=== PATIENT | female | born 1950 | race Caucasian/White ===

== ENCOUNTER 2017-09-15 15:06 | Inpatient (IN) | payer MEDICARE, MEDICAID ==
[~2017-09-15] VITALS: Ht 157.5 cm; Wt 78.0 kg
[~2017-09-15 15:06] MED LIST: BUSP5TAB3 PO; CETI-102 PO; FLUO40CA PO; GABA-532 PO; LEVO50TA78 PO; LISI40TA4 PO; LORA1TAB PO; OMEP-50 PO; OXYC-145 PO; TRAZ-91 PO
[2017-09-15 16:27] LABS: BASOPHILS % (AUTO) 0.1 % (0-1); EOSINOPHILS % (AUTO) 0.2 % (0-6); HEMOGLOBIN 12.1 g/dl (12.0-16.0); LYMPHOCYTES # (AUTO) 0.8 X10'3 (1.1-4.8); LYMPHOCYTES % (AUTO) 5.6 % (21-51); MEAN CORPUSCULAR HEMOGLOBIN 32.6 PG (27.0-31.0); MEAN CORPUSCULAR HGB CONC 34.6 % (33.0-36.5); MEAN CORPUSCULAR VOLUME 94.3 FL (78-98); MEAN PLATELET VOLUME 8.5 FL (7.4-10.4); MONOCYTES # (AUTO) 0.4 X10'3 (0-0.9); MONOCYTES % (AUTO) 2.6 % (2-12); NEUTROPHILS # (AUTO) 12.5 X10'3 (1.8-7.7); NEUTROPHILS % (AUTO) 91.5 % (42-75); PLATELET COUNT 85 X10'3 (140-440); RED BLOOD COUNT 3.71 X10'6 (4.20-5.60); RED CELL DISTRIBUTION WIDTH 13.8 % (11.5-14.5); WHITE BLOOD COUNT 13.7 X10'3 (4.5-11.0)
[2017-09-15 16:52] LABS: ALANINE AMINOTRANSFERASE 38 U/L (12-78); ALBUMIN 3.5 G/DL (3.4-5.0); ALBUMIN/GLOBULIN RATIO 0.9 (1.1-1.5); ALKALINE PHOSPHATASE 58 IU/L (46-116); ANION GAP 8 (8-16); ASPARTATE AMINO TRANSFERASE 20 U/L (10-37); BILIRUBIN,TOTAL 0.4 MG/DL (0.1-1.0); BLOOD UREA NITROGEN 33 MG/DL (7-18); BUN/CREATININE RATIO 17.2 (6.6-38.0); CALCIUM 8.9 MG/DL (8.5-10.1); CHLORIDE 100 MMOL/L (99-107); CREATININE 1.92 MG/DL (0.40-0.90); GLUCOSE 132 MG/DL (70-104); POTASSIUM 4.7 MMOL/L (3.5-5.1); SODIUM 135 MMOL/L (135-145); TOTAL CARBON DIOXIDE 27.2 MMOL/L (24-32); TOTAL PROTEIN 7.3 G/DL (6.4-8.2); eGFR 26 ML/MIN
[2017-09-15 17:06] LABS: D-DIMER 4.46 MG/L FEU (0-0.50); PROTHROMBIN TIME 9.9 SECONDS (9.0-12.0)
[2017-09-15] MEDS ORDERED: HYDR-3686 PO (19:16)
[2017-09-15] MEDS ORDERED: CHLO25CA10 PO (19:16)
[2017-09-15] MEDS ORDERED: BENZ-49 PO (19:16)
[2017-09-15] MEDS ORDERED: SULF1TAB49 PO (19:16)
[2017-09-15] MEDS ORDERED: normal saline 1000ml 1,000 ML IV ONE ×2 (19:25)
[2017-09-15] MEDS: normal saline 1000ml 1,000 ML IV SCH (20:07)
[2017-09-15] MEDS ORDERED: ondansetron/PF 4mg/2ml inj IV PRN (20:10)
[2017-09-15] MEDS ORDERED: magnesium Cl slow-release 64mg tablet PO PRN (20:10)
[2017-09-15] MEDS ORDERED: acetaminophen 325mg tablet PO PRN (20:10)
[2017-09-15] MEDS ORDERED: magnesium 2GM in 50ml NS 50 ML IV PRN (20:10)
[2017-09-15] MEDS ORDERED: mag hydrox/Alum hydrox/simeth 30ml oral suspension PO PRN (20:10)
[2017-09-15] MEDS ORDERED: magnesium hydroxide 30ml (MOM) UD suspension PO PRN (20:10)
[2017-09-15] MEDS ORDERED: potassium Cl 40MEQ/NS 500ml 500 ML IV PRN ×2 (20:10)
[2017-09-15] MEDS ORDERED: ipratropium/albuterol 3ml nebule NEB PRN (20:10)
[2017-09-15] MEDS ORDERED: magnesium 4gm in 100ml NS 100 ML IV PRN (20:10)
[2017-09-15] MEDS ORDERED: potassium Cl 20 mEq SR tablet PO PRN ×2 (20:10)
[2017-09-15] MEDS ORDERED: haloperidol 5mg tablet PO PRN (20:30)
[2017-09-15] MEDS ORDERED: LORazepam 2 mg/ml vial IV PRN (20:30)
[2017-09-15] MEDS ORDERED: haloperidol lactate 5mg/ml inj IM PRN (20:30)
[2017-09-15] MEDS ORDERED: thiamine inj. 100 MG in normal saline 100ml IV soln 100 ML IV ONE (20:30)
[2017-09-15] MEDS ORDERED: benzonatate 100mg capsule PO PRN (20:35)
[2017-09-15 22:00] VITALS: BP 102/60
[2017-09-15] MEDS: traZODone 50mg tablet PO SCH (22:13)
[2017-09-15] MEDS: gabapentin 300mg capsule PO SCH (22:13)
[2017-09-15] MEDS ORDERED: normal saline 100ml IV soln 100 ML IV ONE (23:40)
[2017-09-15] MEDS ORDERED: thiamine 100mg/ml 2ml inj. IV ONE (23:40)
[2017-09-16] VITALS: BP 102/58
[2017-09-16] MEDS: normal saline 1000ml 1,000 ML IV SCH ×2 (06:07→12:09)
[2017-09-16 06:11] LABS: ALANINE AMINOTRANSFERASE 28 U/L (12-78); ALBUMIN 2.7 G/DL (3.4-5.0); ALBUMIN/GLOBULIN RATIO 0.8 (1.1-1.5); ALKALINE PHOSPHATASE 48 IU/L (46-116); AMYLASE 20 U/L (25-115); ANION GAP 9 (8-16); ASPARTATE AMINO TRANSFERASE 16 U/L (10-37); BILIRUBIN,TOTAL 0.6 MG/DL (0.1-1.0); BLOOD UREA NITROGEN 31 MG/DL (7-18); BUN/CREATININE RATIO 19.1 (6.6-38.0); CALCIUM 8.1 MG/DL (8.5-10.1); CHLORIDE 107 MMOL/L (99-107); CHOL/HDL RATIO 4.8 (0.00-4.99); CHOLESTEROL 235 MG/DL (0-200); CREATININE 1.62 MG/DL (0.40-0.90); GLUCOSE 149 MG/DL (70-104); HDL CHOLESTEROL 49 MG/DL (35-60); LDL CHOLESTEROL 155 MG/DL (50-100); LIPASE < 50 U/L (73-393); PHOSPHORUS 3.3 MG/DL (2.3-4.5); POTASSIUM 4.8 MMOL/L (3.5-5.1); SODIUM 140 MMOL/L (135-145); TOTAL CARBON DIOXIDE 24.2 MMOL/L (24-32); TRIGLYCERIDES 151 MG/DL (20-135); eGFR 32 ML/MIN
[2017-09-16 06:48] LABS: BASOPHILS % (AUTO) 0.1 % (0-1); EOSINOPHILS # (AUTO) 0.1 X10'3 (0-0.9); EOSINOPHILS % (AUTO) 1.7 % (0-6); HEMATOCRIT 29.9 % (35.0-45.0); HEMOGLOBIN 10.3 g/dl (12.0-16.0); LYMPHOCYTES # (AUTO) 0.7 X10'3 (1.1-4.8); LYMPHOCYTES % (AUTO) 7.3 % (21-51); MEAN CORPUSCULAR HEMOGLOBIN 32.9 PG (27.0-31.0); MEAN CORPUSCULAR HGB CONC 34.3 % (33.0-36.5); MEAN CORPUSCULAR VOLUME 95.9 FL (78-98); MEAN PLATELET VOLUME 8.9 FL (7.4-10.4); MONOCYTES # (AUTO) 0.4 X10'3 (0-0.9); NEUTROPHILS # (AUTO) 7.6 X10'3 (1.8-7.7); NEUTROPHILS % (AUTO) 85.9 % (42-75); PLATELET COUNT 67 X10'3 (140-440); RED BLOOD COUNT 3.12 X10'6 (4.20-5.60); RED CELL DISTRIBUTION WIDTH 13.6 % (11.5-14.5); WHITE BLOOD COUNT 8.9 X10'3 (4.5-11.0)
[2017-09-16 07:00] VITALS: BP 90/44
[2017-09-16] MEDS: FLUoxetine 20mg capsule PO SCH (07:30)
[2017-09-16] MEDS: pantoprazole 40mg Tablet.DR PO SCH (07:30)
[2017-09-16] MEDS: busPIRone 5mg tablet PO SCH (07:30)
[2017-09-16] MEDS: gabapentin 300mg capsule PO SCH ×3 (07:30→20:07)
[2017-09-16] MEDS: cetirizine 10mg tablet PO SCH (07:31)
[2017-09-16] MEDS: lisinopril 10 MG tablet PO SCH (07:33)
[2017-09-16] MEDS: levoTHYROXINE 25mcg tablet PO SCH (07:34)
[2017-09-16] MEDS: K and/or MAG REPLACEMENT MC SCH (07:35)
[2017-09-16 08:00] VITALS: BP_SYST 103; BP_SYST 113; BP_SYST 121; BP_DIAS 56; BP_DIAS 58
[2017-09-16 08:00] LABS: PROTHROMBIN TIME 10.1 SECONDS (9.0-12.0)
[2017-09-16] MEDS ORDERED: folic acid inj. 2 MG, thiamine inj. 100 MG, MVI, adult No.4 with vit. K 10 ML in dextro... IV SCH ×4 (08:00)
[2017-09-16] MEDS ORDERED: LATA2.5D2 OP (09:39)
[2017-09-16] MEDS: acetaminophen 325mg tablet PO PRN ×2 (10:04→22:57)
[2017-09-16] MEDS: thiamine 100mg tablet PO SCH (10:05)
[2017-09-16] MEDS: multivitamins, therapeutics tablet PO SCH (10:05)
[2017-09-16] MEDS: folic acid 1mg tablet PO SCH (10:05)
[2017-09-16 11:00] VITALS: BP 113/56
[2017-09-16 18:00] VITALS: BP 147/69
[2017-09-16] MEDS: chlordiazePOXIDE 5mg capsule PO PRN (18:54)
[2017-09-16] MEDS: traZODone 50mg tablet PO SCH (20:07)
[2017-09-16] MEDS: latanoprost 0.005% 2.5ml ophthalmic drops EACHEYE SCH (20:09)
[2017-09-17] VITALS: BP 124/51
[2017-09-17] MEDS: normal saline 1000ml 1,000 ML IV SCH ×3 (02:07→15:04)
[2017-09-17] MEDS: chlordiazePOXIDE 5mg capsule PO PRN (05:16)
[2017-09-17 06:05] LABS: BASOPHILS % (AUTO) 0.1 % (0-1); EOSINOPHILS # (AUTO) 0.2 X10'3 (0-0.9); EOSINOPHILS % (AUTO) 2.4 % (0-6); HEMATOCRIT 31.4 % (35.0-45.0); HEMOGLOBIN 10.9 g/dl (12.0-16.0); LYMPHOCYTES # (AUTO) 0.9 X10'3 (1.1-4.8); MEAN CORPUSCULAR HEMOGLOBIN 32.6 PG (27.0-31.0); MEAN CORPUSCULAR HGB CONC 34.5 % (33.0-36.5); MEAN CORPUSCULAR VOLUME 94.5 FL (78-98); MEAN PLATELET VOLUME 8.9 FL (7.4-10.4); MONOCYTES # (AUTO) 0.6 X10'3 (0-0.9); MONOCYTES % (AUTO) 8.5 % (2-12); NEUTROPHILS # (AUTO) 5.6 X10'3 (1.8-7.7); PLATELET COUNT 72 X10'3 (140-440); RED BLOOD COUNT 3.33 X10'6 (4.20-5.60); RED CELL DISTRIBUTION WIDTH 13.7 % (11.5-14.5); WHITE BLOOD COUNT 7.3 X10'3 (4.5-11.0)
[2017-09-17 06:10] LABS: PROTHROMBIN TIME 10.6 SECONDS (9.0-12.0)
[2017-09-17 06:48] LABS: ALANINE AMINOTRANSFERASE 30 U/L (12-78); ALBUMIN 2.8 G/DL (3.4-5.0); ALBUMIN/GLOBULIN RATIO 0.7 (1.1-1.5); ALKALINE PHOSPHATASE 54 IU/L (46-116); AMYLASE 21 U/L (25-115); ANION GAP 12 (8-16); ASPARTATE AMINO TRANSFERASE 11 U/L (10-37); BILIRUBIN,TOTAL 0.6 MG/DL (0.1-1.0); BLOOD UREA NITROGEN 13 MG/DL (7-18); BUN/CREATININE RATIO 13.3 (6.6-38.0); CALCIUM 9.1 MG/DL (8.5-10.1); CHLORIDE 110 MMOL/L (99-107); CREATININE 0.98 MG/DL (0.40-0.90); GLUCOSE 131 MG/DL (70-104); LIPASE < 50 U/L (73-393); PHOSPHORUS 3.7 MG/DL (2.3-4.5); POTASSIUM 4.1 MMOL/L (3.5-5.1); SODIUM 145 MMOL/L (135-145); TOTAL PROTEIN 6.6 G/DL (6.4-8.2); eGFR 56 ML/MIN
[2017-09-17] MEDS: levoTHYROXINE 25mcg tablet PO SCH (07:19)
[2017-09-17] MEDS: pantoprazole 40mg Tablet.DR PO SCH (07:20)
[2017-09-17] MEDS: folic acid 1mg tablet PO SCH (07:21)
[2017-09-17] MEDS: busPIRone 5mg tablet PO SCH (07:21)
[2017-09-17] MEDS: FLUoxetine 20mg capsule PO SCH (07:22)
[2017-09-17] MEDS: thiamine 100mg tablet PO SCH (07:22)
[2017-09-17] MEDS: multivitamins, therapeutics tablet PO SCH (07:22)
[2017-09-17] MEDS: lisinopril 10 MG tablet PO SCH (07:22)
[2017-09-17] MEDS: cetirizine 10mg tablet PO SCH (07:22)
[2017-09-17] MEDS: gabapentin 300mg capsule PO SCH ×3 (07:22→20:40)
[2017-09-17] MEDS: acetaminophen 325mg tablet PO PRN ×2 (07:25→18:21)
[2017-09-17] MEDS: K and/or MAG REPLACEMENT MC SCH (08:00)
[2017-09-17 08:42] VITALS: BP 140/85
[2017-09-17 11:34] VITALS: BP 103/64
[2017-09-17 11:35] VITALS: BP 123/56
[2017-09-17 18:00] VITALS: BP 139/78
[2017-09-17 20:00] VITALS: BP_SYST 139; BP_SYST 142; BP_DIAS 70; BP_DIAS 73; BP_DIAS 78
[2017-09-17] MEDS: traZODone 50mg tablet PO SCH (20:40)
[2017-09-17] MEDS: latanoprost 0.005% 2.5ml ophthalmic drops EACHEYE SCH (20:40)
[2017-09-18] VITALS: BP 123/66
[2017-09-18] MEDS: acetaminophen 325mg tablet PO PRN (05:18)
[2017-09-18 06:17] LABS: BASOPHILS % (AUTO) 0.2 % (0-1); EOSINOPHILS # (AUTO) 0.2 X10'3 (0-0.9); EOSINOPHILS % (AUTO) 3.3 % (0-6); HEMATOCRIT 29.2 % (35.0-45.0); HEMOGLOBIN 10.2 g/dl (12.0-16.0); LYMPHOCYTES # (AUTO) 0.8 X10'3 (1.1-4.8); LYMPHOCYTES % (AUTO) 15.1 % (21-51); MEAN CORPUSCULAR HEMOGLOBIN 33.3 PG (27.0-31.0); MEAN PLATELET VOLUME 10.1 FL (7.4-10.4); MONOCYTES # (AUTO) 0.6 X10'3 (0-0.9); MONOCYTES % (AUTO) 11.3 % (2-12); NEUTROPHILS # (AUTO) 3.5 X10'3 (1.8-7.7); NEUTROPHILS % (AUTO) 70.1 % (42-75); PLATELET COUNT 75 X10'3 (140-440); RED BLOOD COUNT 3.07 X10'6 (4.20-5.60); RED CELL DISTRIBUTION WIDTH 12.5 % (11.5-14.5); WHITE BLOOD COUNT 5.1 X10'3 (4.5-11.0)
[2017-09-18 06:20] LABS: ALANINE AMINOTRANSFERASE 26 U/L (12-78); ALBUMIN 2.6 G/DL (3.4-5.0); ALBUMIN/GLOBULIN RATIO 0.7 (1.1-1.5); ALKALINE PHOSPHATASE 48 IU/L (46-116); AMYLASE 20 U/L (25-115); ANION GAP 10 (8-16); ASPARTATE AMINO TRANSFERASE 12 U/L (10-37); BILIRUBIN,TOTAL 0.4 MG/DL (0.1-1.0); BLOOD UREA NITROGEN 9 MG/DL (7-18); BUN/CREATININE RATIO 12.2 (6.6-38.0); CALCIUM 8.7 MG/DL (8.5-10.1); CHLORIDE 111 MMOL/L (99-107); CREATININE 0.74 MG/DL (0.40-0.90); GLUCOSE 117 MG/DL (70-104); LIPASE < 50 U/L (73-393); MAGNESIUM 1.7 MG/DL (1.5-2.4); PHOSPHORUS 4.2 MG/DL (2.3-4.5); SODIUM 145 MMOL/L (135-145); TOTAL CARBON DIOXIDE 23.8 MMOL/L (24-32); TOTAL PROTEIN 6.3 G/DL (6.4-8.2); eGFR 78 ML/MIN
[2017-09-18] MEDS: levoTHYROXINE 25mcg tablet PO SCH (07:17)
[2017-09-18] MEDS: pantoprazole 40mg Tablet.DR PO SCH (07:17)
[2017-09-18] MEDS: FLUoxetine 20mg capsule PO SCH (07:17)
[2017-09-18] MEDS: folic acid 1mg tablet PO SCH (07:17)
[2017-09-18] MEDS: gabapentin 300mg capsule PO SCH ×2 (07:17→13:22)
[2017-09-18] MEDS: lisinopril 10 MG tablet PO SCH (07:17)
[2017-09-18] MEDS: thiamine 100mg tablet PO SCH (07:18)
[2017-09-18] MEDS: busPIRone 5mg tablet PO SCH (07:18)
[2017-09-18] MEDS: cetirizine 10mg tablet PO SCH (07:18)
[2017-09-18] MEDS: multivitamins, therapeutics tablet PO SCH (07:18)
[2017-09-18] MEDS: K and/or MAG REPLACEMENT MC SCH (07:22)
[2017-09-18] MEDS: normal saline 1000ml 1,000 ML IV SCH (08:07)
[2017-09-18 08:30] VITALS: BP_SYST 123; BP_SYST 133; BP_SYST 145; BP_DIAS 53; BP_DIAS 76; BP_DIAS 83
[2017-09-18 08:43] VITALS: BP 123/53
[2017-09-18] MEDS ORDERED: MULT-1179 PO (11:22)
[2017-09-18] MEDS: chlordiazePOXIDE 5mg capsule PO PRN (13:22)
[2017-09-18 14:00] VITALS: BP 135/69
== END 2017-09-18 14:45 | disposition home health service (06) | DRG 682 ==
LOC: ER 15:06 → ED HOLD 20:07 → SUR 3N 22:36
PROVIDERS: ADMIT Family Medicine; ATTEND Internal Medicine
DX: N17.9 Acute kidney failure, unspecified (principal); J96.00 Acute respiratory failure, unspecified whether with hypoxia or hypercapnia; D69.59 Other secondary thrombocytopenia; E86.0 Dehydration; E11.9 Type 2 diabetes mellitus without complications; D64.9 Anemia, unspecified; F10.239 Alcohol dependence with withdrawal, unspecified; F32.9 Major depressive disorder, single episode, unspecified; M19.90 Unspecified osteoarthritis, unspecified site; I10 Essential (primary) hypertension; J20.9 Acute bronchitis, unspecified; R79.1 Abnormal coagulation profile; Z98.891 History of uterine scar from previous surgery; Z88.0 Allergy status to penicillin; Z91.011 Allergy to milk products; Z79.899 Other long term (current) drug therapy; Z87.891 Personal history of nicotine dependence; Z82.3 Family history of stroke; Z82.49 Family history of ischemic heart disease and other diseases of the circulatory system; Z82.5 Family history of asthma and other chronic lower respiratory diseases; Z83.3 Family history of diabetes mellitus
CPT/HCPCS: 36415; 71045; 78582; 80053; 80061; 82150; 82948; 83605; 83690; 83735; 83880; 84100; 84484; 85025; 85379; 85610; 87040; 87070; 87502; 87503; 93005; 93306; 94760; 97110; 97116; 97161; 99285; A6258; A9539; A9540; J3411; J3490; J7030; J7060

== ENCOUNTER 2017-10-06 16:46 | Emergency (ER) | payer MEDICARE, MEDICAID ==
[~2017-10-06] VITALS: Ht 5200 cm; Wt 74.1 kg
[~2017-10-06 16:46] MED LIST changes: +BENZ-49 PO; +CHLO25CA10 PO; +HYDR-3686 PO; +LATA2.5D2 OP; +MULT-1179 PO; -OXYC-145 PO
[2017-10-06] MEDS ORDERED: normal saline 1000ML IV soln IVB ONE (16:55)
[2017-10-06] MEDS ORDERED: thiamine inj. 100 MG in normal saline 100ml IV soln 99 ML IV ONE (16:55)
[2017-10-06] MEDS ORDERED: magnesium 2GM in 50ml NS 50 ML IV ONE (16:55)
[2017-10-06 17:33] LABS: BASOPHILS % (AUTO) 0.3 % (0-1); EOSINOPHILS # (AUTO) 0.2 X10'3 (0-0.9); EOSINOPHILS % (AUTO) 5.7 % (0-6); HEMATOCRIT 36.8 % (35.0-45.0); HEMOGLOBIN 12.8 g/dl (12.0-16.0); LYMPHOCYTES # (AUTO) 1.6 X10'3 (1.1-4.8); LYMPHOCYTES % (AUTO) 45.5 % (21-51); MEAN CORPUSCULAR HEMOGLOBIN 32.2 PG (27.0-31.0); MEAN CORPUSCULAR HGB CONC 34.8 % (33.0-36.5); MEAN CORPUSCULAR VOLUME 92.7 FL (78-98); MEAN PLATELET VOLUME 8.2 FL (7.4-10.4); MONOCYTES # (AUTO) 0.4 X10'3 (0-0.9); MONOCYTES % (AUTO) 10.4 % (2-12); NEUTROPHILS # (AUTO) 1.3 X10'3 (1.8-7.7); NEUTROPHILS % (AUTO) 38.1 % (42-75); PLATELET COUNT 128 X10'3 (140-440); RED BLOOD COUNT 3.97 X10'6 (4.20-5.60); RED CELL DISTRIBUTION WIDTH 13.8 % (11.5-14.5); WHITE BLOOD COUNT 3.5 X10'3 (4.5-11.0)
[2017-10-06 17:50] LABS: CLARITY,URINE CLEAR (Clear); COLOR,URINE YELLOW (Yellow); GLUCOSE, URINE NEGATIVE (Neg); KETONES,URINE NEGATIVE (Neg); LEUKOCYTE ESTERASE ,URINE TRACE (Neg); NITRITES, URINE NEGATIVE (Neg); OCCULT BLOOD,URINE TRACE-INTACT (Neg); PROTEIN,URINE NEGATIVE (Neg); UROBILINOGEN,URINE 0.2 E.U/dL (0.2-1.0)
[2017-10-06 17:51] LABS: UA COLLECTION TYPE CLN CATCH MIDSTREAM
[2017-10-06 17:56] LABS: BACTERIA,URINE NONE SEEN /HPF (Neg); MUCUS STRANDS NONE SEEN /LPF (Neg); RBC,URINE NONE SEEN /HPF (0-2); SQUAMOUS EPITHELIAL CELL,UR FEW /LPF (FEW); WBC,URINE 0-4 /HPF (0-4)
[2017-10-06 17:58] LABS: ALANINE AMINOTRANSFERASE 31 U/L (12-78); ALBUMIN 3.3 G/DL (3.4-5.0); ALBUMIN/GLOBULIN RATIO 0.9 (1.1-1.5); ALKALINE PHOSPHATASE 81 IU/L (46-116); ANION GAP 9 (8-16); ASPARTATE AMINO TRANSFERASE 34 U/L (10-37); BILIRUBIN,TOTAL 0.3 MG/DL (0.1-1.0); BLOOD UREA NITROGEN 10 MG/DL (7-18); BUN/CREATININE RATIO 11.6 (6.6-38.0); CALCIUM 8.7 MG/DL (8.5-10.1); CHLORIDE 104 MMOL/L (99-107); CREATININE 0.86 MG/DL (0.40-0.90); GLUCOSE 118 MG/DL (70-104); LIPASE < 50 U/L (73-393); MAGNESIUM 2.2 MG/DL (1.5-2.4); POTASSIUM 4.2 MMOL/L (3.5-5.1); SODIUM 142 MMOL/L (135-145); TOTAL CARBON DIOXIDE 28.7 MMOL/L (24-32); TOTAL PROTEIN 6.9 G/DL (6.4-8.2); eGFR 65 ML/MIN
[2017-10-06 18:10] LABS: URINE AMPHETAMINE SCREEN NEGATIVE (Neg); URINE BARBITUATE SCREEN NEGATIVE (Neg); URINE BENZODIAZEPINES SCREEN POSITIVE (Neg); URINE CANNABINOID SCREEN POSITIVE (Neg); URINE COCAINE SCREEN NEGATIVE (Neg); URINE METHADONE SCREEN NEGATIVE (Neg); URINE OPIATE SCREEN NEGATIVE (Neg); URINE PHENCYCLIDINE SCREEN NEGATIVE (Neg)
[2017-10-06 18:35] VITALS: BP 134/73
[2017-10-06] MEDS ORDERED: phenobarbital inj 260 MG in normal saline 100ml IV soln 99 ML IV STA (18:49)
== END 2017-10-06 21:08 | disposition home or self-care (01) ==
LOC: ER 16:47
DX: R45.851 Suicidal ideations (principal); F10.129 Alcohol abuse with intoxication, unspecified; F12.10 Cannabis abuse, uncomplicated; I10 Essential (primary) hypertension; E11.9 Type 2 diabetes mellitus without complications; F32.9 Major depressive disorder, single episode, unspecified; Z88.0 Allergy status to penicillin; Z98.890 Other specified postprocedural states
CPT/HCPCS: 36415; 80053; 80305; 80320; 81001; 82948; 83690; 83735; 84443; 85025; 87088; 93005; 96365; 96366; 96368; 99285; J2560; J3411; J3475; J7030

== ENCOUNTER 2019-01-16 12:22 | Inpatient (IN) | payer MEDICARE, MEDICAID ==
[~2019-01-16] VITALS: Ht 157.5 cm; Wt 72.7 kg
[~2019-01-16 12:22] MED LIST changes: -BENZ-49 PO; -CHLO25CA10 PO; +LATA2.5D2 EACHEYE; -LATA2.5D2 OP; -LORA1TAB PO; -MULT-1179 PO
[2019-01-16 13:09] LABS: BASOPHILS % (AUTO) 0.3 % (0-1); EOSINOPHILS # (AUTO) 0.1 X10'3 (0-0.9); EOSINOPHILS % (AUTO) 0.9 % (0-6); HEMATOCRIT 42.6 % (35.0-45.0); HEMOGLOBIN 14.8 g/dl (12.0-16.0); LYMPHOCYTES # (AUTO) 1.6 X10'3 (1.1-4.8); LYMPHOCYTES % (AUTO) 12.2 % (21-51); MEAN CORPUSCULAR HEMOGLOBIN 31.3 PG (27.0-31.0); MEAN CORPUSCULAR HGB CONC 34.7 g/dL (33.0-36.5); MEAN CORPUSCULAR VOLUME 90.1 FL (78-98); MEAN PLATELET VOLUME 8.1 FL (7.4-10.4); MONOCYTES # (AUTO) 0.6 X10'3 (0-0.9); MONOCYTES % (AUTO) 4.8 % (2-12); NEUTROPHILS # (AUTO) 10.6 X10'3 (1.8-7.7); NEUTROPHILS % (AUTO) 81.8 % (42-75); PLATELET COUNT 230 X10'3 (140-440); RED BLOOD COUNT 4.73 X10'6 (4.20-5.60); WHITE BLOOD COUNT 12.9 X10'3 (4.5-11.0)
[2019-01-16 13:10] LABS: PARTIAL THROMBOPLASTIN TIME 28 SECONDS (22-32)
[2019-01-16 13:16] LABS: ALANINE AMINOTRANSFERASE 32 U/L (12-78); ALBUMIN 4.1 G/DL (3.4-5.0); ALKALINE PHOSPHATASE 114 IU/L (46-116); ANION GAP 15 (8-16); ASPARTATE AMINO TRANSFERASE 19 U/L (10-37); BILIRUBIN,TOTAL 0.8 MG/DL (0.1-1.0); BLOOD UREA NITROGEN 33 MG/DL (7-18); BUN/CREATININE RATIO 14.3 (6.6-38.0); CALCIUM 9.6 MG/DL (8.5-10.1); CHLORIDE 95 MMOL/L (99-107); GLUCOSE 206 MG/DL (70-104); POTASSIUM 4.4 MMOL/L (3.5-5.1); SODIUM 134 MMOL/L (135-145); TOTAL CARBON DIOXIDE 24.2 MMOL/L (24-32); TOTAL PROTEIN 8.2 G/DL (6.4-8.2); eGFR 21 ML/MIN
[2019-01-16] MEDS ORDERED: ondansetron/PF 4mg/2ml inj IV ONE (13:45)
[2019-01-16] MEDS ORDERED: aspirin 325mg tablet PO ONE (13:45)
[2019-01-16] MEDS ORDERED: enoxaparin 100mg/ml syringe SUBCUT ONE (13:45)
[2019-01-16] MEDS ORDERED: normal saline 1000ML IV soln IVB ONE (13:45)
[2019-01-16 13:52] LABS: ETHANOL < 0.010 GM/DL (0.0-0.010)
[2019-01-16 13:55] LABS: LIPASE 138 U/L (73-393)
[2019-01-16] MEDS ORDERED: CYCL10TA10 PO (14:20)
[2019-01-16] MEDS ORDERED: IBUP-1986 PO (14:20)
[2019-01-16] MEDS ORDERED: ALBU18HF2 INH (14:20)
[2019-01-16] MEDS ORDERED: THIA100T66 PO (14:20)
[2019-01-16] MEDS ORDERED: ATOR20TA66 PO (14:20)
[2019-01-16] MEDS ORDERED: LORA0.5T PO (14:20)
--- NOTE | 2019-01-16 14:21 | NUR ---
dr. radford at bedside.
[2019-01-16] MEDS ORDERED: HYDROcodone/acetaminophen 5mg/325mg tablet PO PRN (14:30)
[2019-01-16] MEDS ORDERED: dextrose ORAL solution 15 GM/59 ML bottle PO PRN (14:30)
[2019-01-16] MEDS ORDERED: haloperidol 5mg tablet PO PRN (14:30)
[2019-01-16] MEDS ORDERED: dextrose 50%-water 50ml dispensing syringe IV PRN ×2 (14:30)
[2019-01-16] MEDS ORDERED: acetaminophen 325mg tablet PO PRN ×2 (14:30)
[2019-01-16] MEDS ORDERED: glucagon, human recombinant 1mg kit SUBCUT PRN (14:30)
[2019-01-16] MEDS ORDERED: magnesium 2GM in 50ml NS 50 ML IV PRN (14:30)
[2019-01-16] MEDS ORDERED: thiamine inj. 100 MG in normal saline 100ml IV soln 100 ML IV ONE (14:30)
[2019-01-16] MEDS ORDERED: potassium CL 10mEq/100ml bag 100 ML IV PRN ×2 (14:30)
[2019-01-16] MEDS ORDERED: ipratropium/albuterol 3ml nebule NEB PRN (14:30)
[2019-01-16] MEDS ORDERED: potassium Cl 20 mEq SR tablet PO PRN ×2 (14:30)
[2019-01-16] MEDS ORDERED: haloperidol lactate 5mg/ml inj IM PRN (14:30)
[2019-01-16] MEDS ORDERED: MESSAGE TO PHARMACY PO ONE (14:30)
[2019-01-16] MEDS ORDERED: magnesium Cl slow-release 64mg tablet PO PRN (14:30)
[2019-01-16] MEDS ORDERED: magnesium 4gm in 100ml NS 100 ML IV PRN (14:30)
[2019-01-16] MEDS ORDERED: ondansetron/PF 4mg/2ml inj IV PRN (14:30)
[2019-01-16] MEDS ORDERED: docusate sod 100mg capsule PO PRN (14:30)
[2019-01-16] MEDS ORDERED: mag hydrox/Alum hydrox/simeth 30ml oral suspension PO PRN (14:30)
[2019-01-16] MEDS ORDERED: albuterol 2.5 MG/3 ML nebule NEB PRN (14:55)
[2019-01-16 15:00] VITALS: BP 128/62
[2019-01-16 15:45] LABS: HEMOGLOBIN A1C 6.1 % (4.5-6.2)
--- NOTE | 2019-01-16 17:25 | NUR ---
PAGER ID: [phone] MESSAGE: [id number] Alexia Greene Latic acid came back 2.2 ALLA Uribe Ext [phone]
--- NOTE | 2019-01-16 17:37 | NUR ---
Orientee documentation: I have reviewed and agree with all interventions, assessments performed and documented by ALLA Wilson.
--- NOTE | 2019-01-16 17:39 | NUR ---
Orientee Medication Administration: For this medication-pass time frame, all medication were reviewed, dispensed, administered and documented per hospital policy by ALLA Wilson.
--- NOTE | 2019-01-16 18:36 | NUR ---
Patient in room PCU 3026. I have received report from Rony GOLD and had the opportunity to ask questions and assume patient care.
[2019-01-16 19:00] VITALS: BP 123/68
[2019-01-16] MEDS: LORazepam 2 mg/ml vial IV PRN (21:23)
[2019-01-16] MEDS: traZODone 50mg tablet PO SCH (21:23)
[2019-01-16] MEDS: gabapentin 300mg capsule PO SCH (21:24)
[2019-01-16] MEDS: HYDROcodone/acetaminophen 10/325mg tab PO PRN (21:25)
[2019-01-16] MEDS: latanoprost 0.005% 2.5ml ophthalmic drops EACHEYE SCH (21:28)
[2019-01-16] MEDS: insulin glargine (Lantus) pen - multi-dose SQ SCH (21:38)
[2019-01-16 22:00] VITALS: BP 90/55
[2019-01-17] VITALS (7 sets, daily range): BP systolic 79–119; BP diastolic 53–92
[2019-01-17 02:36] LABS: ALANINE AMINOTRANSFERASE 26 U/L (12-78); ALBUMIN 3.2 G/DL (3.4-5.0); ALBUMIN/GLOBULIN RATIO 0.9 (1.1-1.5); ALKALINE PHOSPHATASE 94 IU/L (46-116); ANION GAP 10 (8-16); ASPARTATE AMINO TRANSFERASE 16 U/L (10-37); BILIRUBIN,TOTAL 0.5 MG/DL (0.1-1.0); BLOOD UREA NITROGEN 40 MG/DL (7-18); BUN/CREATININE RATIO 20.7 (6.6-38.0); CALCIUM 8.3 MG/DL (8.5-10.1); CHLORIDE 101 MMOL/L (99-107); CREATININE 1.93 MG/DL (0.40-0.90); GLUCOSE 187 MG/DL (70-104); POTASSIUM 4.1 MMOL/L (3.5-5.1); SODIUM 135 MMOL/L (135-145); TOTAL CARBON DIOXIDE 24.5 MMOL/L (24-32); TOTAL PROTEIN 6.6 G/DL (6.4-8.2); eGFR 26 ML/MIN
[2019-01-17 02:37] LABS: BASOPHILS % (AUTO) 0.4 % (0-1); EOSINOPHILS # (AUTO) 0.3 X10'3 (0-0.9); EOSINOPHILS % (AUTO) 3.3 % (0-6); HEMATOCRIT 35.8 % (35.0-45.0); HEMOGLOBIN 12.1 g/dl (12.0-16.0); LYMPHOCYTES # (AUTO) 1.9 X10'3 (1.1-4.8); LYMPHOCYTES % (AUTO) 21.5 % (21-51); MEAN CORPUSCULAR HEMOGLOBIN 31.2 PG (27.0-31.0); MEAN CORPUSCULAR HGB CONC 33.9 g/dL (33.0-36.5); MEAN CORPUSCULAR VOLUME 92.3 FL (78-98); MEAN PLATELET VOLUME 8.3 FL (7.4-10.4); MONOCYTES # (AUTO) 0.6 X10'3 (0-0.9); MONOCYTES % (AUTO) 6.9 % (2-12); NEUTROPHILS % (AUTO) 67.9 % (42-75); PLATELET COUNT 130 X10'3 (140-440); RED BLOOD COUNT 3.88 X10'6 (4.20-5.60); RED CELL DISTRIBUTION WIDTH 13.9 % (11.5-14.5); WHITE BLOOD COUNT 8.9 X10'3 (4.5-11.0)
[2019-01-17 02:41] LABS: AMYLASE 20 U/L (25-115); CHOL/HDL RATIO 5.3 (0.00-4.99); CHOLESTEROL 165 MG/DL (0-200); HDL CHOLESTEROL 31 MG/DL (35-60); LDL CHOLESTEROL 84 MG/DL (50-100); LIPASE 68 U/L (73-393); MAGNESIUM 1.9 MG/DL (1.5-2.4); PHOSPHORUS 4.5 MG/DL (2.3-4.5); TRIGLYCERIDES 440 MG/DL (20-135)
--- NOTE | 2019-01-17 06:54 | NUR ---
Patient in room PCU 3026. I have received report from Chrystal and had the opportunity to ask questions and assume patient care.
[2019-01-17] MEDS: FLUoxetine 20mg capsule PO SCH (07:33)
[2019-01-17] MEDS: multivitamins, therapeutics tablet PO SCH (07:35)
[2019-01-17] MEDS: atorvastatin 20mg tablet PO SCH (07:35)
[2019-01-17] MEDS: levoTHYROXINE 25mcg tablet PO SCH (07:35)
[2019-01-17] MEDS: busPIRone 5mg tablet PO SCH (07:35)
[2019-01-17] MEDS: cetirizine 10mg tablet PO SCH (07:35)
[2019-01-17] MEDS: gabapentin 300mg capsule PO SCH ×3 (07:36→22:35)
[2019-01-17] MEDS: folic acid 1mg tablet PO SCH (07:36)
[2019-01-17] MEDS: K and/or MAG REPLACEMENT MC SCH (07:43)
[2019-01-17] MEDS ORDERED: enoxaparin 80mg/0.8ml syringe SUBCUT SCH (08:00)
[2019-01-17] MEDS ORDERED: lisinopril 20mg tablet PO SCH (08:00)
[2019-01-17] MEDS: thiamine 100mg tablet PO SCH (08:09)
--- NOTE | 2019-01-17 08:24 | NUR ---
Problems reprioritized. Patient report given, questions answered & plan of care reviewed with Rony GOLD.
[2019-01-17] MEDS: insulin Lispro (HumaLOG) vial - multi-dose SQ SCH ×2 (08:54→19:36)
[2019-01-17] MEDS: HYDROcodone/acetaminophen 10/325mg tab PO PRN ×3 (09:04→19:30)
[2019-01-17] MEDS: normal saline 1000ml 1,000 ML IV SCH ×2 (10:00→17:29)
--- NOTE | 2019-01-17 10:01 | NUR ---
DM consult: Patient's A1c is 6.1, per EMR hx overall stable as last documented A1c was 6.0 11/12/17; No DM education warranted at this time. Will continue to follow. Addendum: 01/17/19 at [address] Amended: Links added.
[2019-01-17] MEDS: dextrose ORAL solution 15 GM/59 ML bottle PO PRN (12:09)
--- NOTE | 2019-01-17 18:32 | NUR ---
Problems reprioritized. Patient report given, questions answered & plan of care reviewed with ALLA Jarrell.
--- NOTE | 2019-01-17 19:20 | NUR ---
Patient in room PCU 3026. I have received report from Rony GOLD and had the opportunity to ask questions and assume patient care.
[2019-01-17] MEDS: carVEDilol 3.125mg tablet PO SCH (19:28)
[2019-01-17] MEDS: latanoprost 0.005% 2.5ml ophthalmic drops EACHEYE SCH (22:35)
[2019-01-17] MEDS: traZODone 50mg tablet PO SCH (22:35)
[2019-01-17] MEDS: LORazepam 2 mg/ml vial IV PRN (22:36)
[2019-01-17] MEDS: insulin glargine (Lantus) pen - multi-dose SQ SCH (22:38)
[2019-01-18] VITALS (8 sets, daily range): BP systolic 89–137; BP diastolic 50–72
[2019-01-18] MEDS: normal saline 1000ml 1,000 ML IV SCH ×3 (02:17→21:12)
[2019-01-18] MEDS: HYDROcodone/acetaminophen 10/325mg tab PO PRN ×3 (02:18→19:55)
--- NOTE | 2019-01-18 06:00 | NUR ---
Problems reprioritized. Patient report given, questions answered & plan of care reviewed with Funmi GOLD.
[2019-01-18 06:06] LABS: ALANINE AMINOTRANSFERASE 20 U/L (12-78); ALBUMIN 2.7 G/DL (3.4-5.0); ALBUMIN/GLOBULIN RATIO 0.9 (1.1-1.5); ALKALINE PHOSPHATASE 72 IU/L (46-116); AMYLASE 18 U/L (25-115); ANION GAP 6 (8-16); ASPARTATE AMINO TRANSFERASE 11 U/L (10-37); BASOPHILS % (AUTO) 0.3 % (0-1); BILIRUBIN,TOTAL 0.3 MG/DL (0.1-1.0); BLOOD UREA NITROGEN 33 MG/DL (7-18); BUN/CREATININE RATIO 32.7 (6.6-38.0); CALCIUM 7.8 MG/DL (8.5-10.1); CHLORIDE 107 MMOL/L (99-107); CREATININE 1.01 MG/DL (0.40-0.90); EOSINOPHILS # (AUTO) 0.2 X10'3 (0-0.9); EOSINOPHILS % (AUTO) 4.4 % (0-6); GLUCOSE 160 MG/DL (70-104); HEMATOCRIT 29.6 % (35.0-45.0); HEMOGLOBIN 10.1 g/dl (12.0-16.0); LIPASE < 50 U/L (73-393); LYMPHOCYTES # (AUTO) 1.3 X10'3 (1.1-4.8); LYMPHOCYTES % (AUTO) 26.9 % (21-51); MAGNESIUM 1.7 MG/DL (1.5-2.4); MEAN CORPUSCULAR HEMOGLOBIN 31.6 PG (27.0-31.0); MEAN CORPUSCULAR HGB CONC 34.3 g/dL (33.0-36.5); MEAN PLATELET VOLUME 8.3 FL (7.4-10.4); MONOCYTES # (AUTO) 0.3 X10'3 (0-0.9); MONOCYTES % (AUTO) 5.8 % (2-12); NEUTROPHILS % (AUTO) 62.6 % (42-75); PHOSPHORUS 3.2 MG/DL (2.3-4.5); PLATELET COUNT 98 X10'3 (140-440); POTASSIUM 4.5 MMOL/L (3.5-5.1); RED BLOOD COUNT 3.22 X10'6 (4.20-5.60); RED CELL DISTRIBUTION WIDTH 13.6 % (11.5-14.5); SODIUM 138 MMOL/L (135-145); TOTAL CARBON DIOXIDE 24.6 MMOL/L (24-32); TOTAL PROTEIN 5.7 G/DL (6.4-8.2); WHITE BLOOD COUNT 4.7 X10'3 (4.5-11.0); eGFR 54 ML/MIN
--- NOTE | 2019-01-18 06:42 | NUR ---
Patient in room PCU 3028O. I have received report from Chrystal GOLD and had the opportunity to ask questions and assume patient care.
[2019-01-18] MEDS: K and/or MAG REPLACEMENT MC SCH (08:00)
[2019-01-18] MEDS: enoxaparin 40mg/0.4ml syringe SUBCUT SCH (08:00)
[2019-01-18] MEDS: carVEDilol 3.125mg tablet PO SCH ×2 (08:27→19:54)
[2019-01-18] MEDS: folic acid 1mg tablet PO SCH (08:28)
[2019-01-18] MEDS: multivitamins, therapeutics tablet PO SCH (08:28)
[2019-01-18] MEDS: gabapentin 300mg capsule PO SCH ×3 (08:28→21:12)
[2019-01-18] MEDS: atorvastatin 20mg tablet PO SCH (08:28)
[2019-01-18] MEDS: busPIRone 5mg tablet PO SCH (08:28)
[2019-01-18] MEDS: levoTHYROXINE 25mcg tablet PO SCH (08:28)
[2019-01-18] MEDS: cetirizine 10mg tablet PO SCH (08:28)
[2019-01-18] MEDS: FLUoxetine 20mg capsule PO SCH (08:28)
[2019-01-18] MEDS: thiamine 100mg tablet PO SCH (08:28)
--- NOTE | 2019-01-18 08:35 | NUR ---
Dr Bowen called this morning to check in on Paged Jessi PAGER ID: [phone] MESSAGE: Funmi [id number]. Re Braxton Greene 8452N. Due to our phone call this morning, just wanted to let you know that patient is feeling slightly shaky at the moment. Thank you
[2019-01-18] MEDS: insulin Lispro (HumaLOG) vial - multi-dose SQ SCH (09:13)
[2019-01-18] MEDS: dextrose ORAL solution 15 GM/59 ML bottle PO PRN (12:21)
[2019-01-18] MEDS ORDERED: LORazepam 1 MG tablet PO PRN (14:30)
[2019-01-18] MEDS ORDERED: LORazepam 2 mg/ml vial IV PRN (14:30)
[2019-01-18] MEDS: calcium carbonate 500mg chew tablet PO SCH (17:17)
--- NOTE | 2019-01-18 18:22 | NUR ---
Problems reprioritized. Patient report given, questions answered & plan of care reviewed with Jairo GOLD.
--- NOTE | 2019-01-18 18:27 | NUR ---
Patient in room PCU 3022d. I have received report from ALLA Choudhary and had the opportunity to ask questions and assume patient care. Patient awake for bedside report and stable at this time. 60 mL/hr infusing per provider order. Will continue to monitor closely.
[2019-01-18] MEDS ORDERED: nortriptyline 10mg capsule PO SCH (21:00)
[2019-01-18] MEDS: traZODone 50mg tablet PO SCH (21:13)
[2019-01-18] MEDS: latanoprost 0.005% 2.5ml ophthalmic drops EACHEYE SCH (21:13)
[2019-01-18] MEDS: insulin glargine (Lantus) pen - multi-dose SQ SCH (21:37)
--- NOTE | 2019-01-19 02:00 | NUR ---
Patient was observed stumbling around room at this time. Patient stated she thought she was in a sailboat and an RN walking by was the captain. Patient was reoriented and assisted back to bed. Several minutes later, she was, again, observed by staff attempting to get out of bed and demonstrated an unsteady gait. Patient was escorted back to bed where she became tearful and stated she normally doesn't "do things like this." The 22 G that was placed in her left hand was dislodged by abrupt patient activity. New 22G PIV initiated. Will continue to monitor closely.
[2019-01-19 03:00] VITALS: BP 131/69
[2019-01-19 06:00] VITALS: BP 143/69
--- NOTE | 2019-01-19 06:20 | NUR ---
Patient in room PCU 3029U. I have received report from Jairo GOLD and had the opportunity to ask questions and assume patient care.
--- NOTE | 2019-01-19 06:20 | NUR ---
Problems reprioritized. Patient report given, questions answered & plan of care reviewed with ALLA Choudhary.
--- NOTE | 2019-01-19 06:30 | NUR ---
Patient in room PCU 3026. I have received report from Jairo GOLD and had the opportunity to ask questions and assume patient care.
[2019-01-19 07:00] LABS: BASOPHILS % (AUTO) 0.6 % (0-1); EOSINOPHILS # (AUTO) 0.2 X10'3 (0-0.9); EOSINOPHILS % (AUTO) 4.7 % (0-6); HEMATOCRIT 29.4 % (35.0-45.0); HEMOGLOBIN 10.1 g/dl (12.0-16.0); LYMPHOCYTES # (AUTO) 1.1 X10'3 (1.1-4.8); LYMPHOCYTES % (AUTO) 27.5 % (21-51); MEAN CORPUSCULAR HEMOGLOBIN 31.5 PG (27.0-31.0); MEAN CORPUSCULAR HGB CONC 34.2 g/dL (33.0-36.5); MEAN CORPUSCULAR VOLUME 92.2 FL (78-98); MEAN PLATELET VOLUME 8.8 FL (7.4-10.4); MONOCYTES # (AUTO) 0.3 X10'3 (0-0.9); MONOCYTES % (AUTO) 6.6 % (2-12); NEUTROPHILS # (AUTO) 2.5 X10'3 (1.8-7.7); NEUTROPHILS % (AUTO) 60.6 % (42-75); PLATELET COUNT 77 X10'3 (140-440); RED BLOOD COUNT 3.19 X10'6 (4.20-5.60); RED CELL DISTRIBUTION WIDTH 13.5 % (11.5-14.5); WHITE BLOOD COUNT 4.1 X10'3 (4.5-11.0)
[2019-01-19 07:20] LABS: ALANINE AMINOTRANSFERASE 20 U/L (12-78); ALBUMIN 2.7 G/DL (3.4-5.0); ALBUMIN/GLOBULIN RATIO 0.9 (1.1-1.5); ALKALINE PHOSPHATASE 64 IU/L (46-116); AMYLASE 19 U/L (25-115); ANION GAP 9 (8-16); ASPARTATE AMINO TRANSFERASE 10 U/L (10-37); BILIRUBIN,TOTAL 0.3 MG/DL (0.1-1.0); BLOOD UREA NITROGEN 20 MG/DL (7-18); BUN/CREATININE RATIO 25.3 (6.6-38.0); CALCIUM 8.1 MG/DL (8.5-10.1); CHLORIDE 109 MMOL/L (99-107); CREATININE 0.79 MG/DL (0.40-0.90); GLUCOSE 163 MG/DL (70-104); LIPASE 87 U/L (73-393); MAGNESIUM 1.6 MG/DL (1.5-2.4); PHOSPHORUS 2.9 MG/DL (2.3-4.5); POTASSIUM 4.2 MMOL/L (3.5-5.1); SODIUM 142 MMOL/L (135-145); TOTAL CARBON DIOXIDE 24.3 MMOL/L (24-32); TOTAL PROTEIN 5.6 G/DL (6.4-8.2); eGFR 72 ML/MIN
[2019-01-19 08:00] VITALS: BP_SYST 140; BP_SYST 141; BP_SYST 150; BP_DIAS 49; BP_DIAS 67; BP_DIAS 69
[2019-01-19] MEDS: K and/or MAG REPLACEMENT MC SCH (08:00)
[2019-01-19] MEDS: enoxaparin 40mg/0.4ml syringe SUBCUT SCH (08:00)
[2019-01-19] MEDS: calcium carbonate 500mg chew tablet PO SCH ×2 (08:28→13:08)
[2019-01-19] MEDS: FLUoxetine 20mg capsule PO SCH (08:28)
[2019-01-19] MEDS: multivitamins, therapeutics tablet PO SCH (08:29)
[2019-01-19] MEDS: levoTHYROXINE 25mcg tablet PO SCH (08:29)
[2019-01-19] MEDS: folic acid 1mg tablet PO SCH (08:29)
[2019-01-19] MEDS: gabapentin 300mg capsule PO SCH ×2 (08:29→13:07)
[2019-01-19] MEDS: thiamine 100mg tablet PO SCH (08:29)
[2019-01-19] MEDS: atorvastatin 20mg tablet PO SCH (08:29)
[2019-01-19] MEDS: carVEDilol 3.125mg tablet PO SCH (08:30)
[2019-01-19] MEDS: cetirizine 10mg tablet PO SCH (08:31)
[2019-01-19] MEDS: busPIRone 5mg tablet PO SCH (08:31)
[2019-01-19] MEDS: HYDROcodone/acetaminophen 10/325mg tab PO PRN ×2 (08:41→13:12)
[2019-01-19 11:00] VITALS: BP 141/67
[2019-01-19] MEDS ORDERED: GLIP5TAB13 PO (11:47)
[2019-01-19] MEDS ORDERED: COR3.125T PO (11:47)
--- NOTE | 2019-01-19 13:30 | NUR ---
Called in new prescriptions to [facility] at [address] [place] [id number]. Call received by Katie from [facility].
--- NOTE | 2019-01-19 14:00 | NUR ---
Stable for discharge per MD orders. Discharge instructions reviewed and given to patient and all questions answered. New prescriptions called into pharmacy of patient's choice. Pt. will schedule own follow up appointment. PIV discontinued; cannula intact. Telemetry monitoring discontinued. All belongings sent with patient. Transferred to private vehicle via wheelchair for transport home, accompanied by friends. Addendum: 01/19/19 at 1612 by Funmi Freitas RN Patient provided with [facility], and this RN sent [facility]. Patient seeks outpatient care at [facility] and they said they will fax over for a request for medical records and then they will call patient to confirm appt (they would not allow us to make followup appt first) *OR the patient can call or go into walk in for appt after discharge. Patient was also provided with hardcopy prescription for strips and lancets to monitor blood glucose.
[2019-01-20] MEDS ORDERED: LORazepam 1 MG tablet PO PRN (14:30)
[2019-01-20] MEDS ORDERED: LORazepam 2 mg/ml vial IV PRN (14:30)
== END 2019-01-19 14:05 | disposition home or self-care (01) | DRG 280 ==
LOC: ER 12:23 → PCU 3S 16:24
PROVIDERS: ADMIT Family Medicine; ATTEND Family Medicine
DX: I21.A1 Myocardial infarction type 2 (principal); N17.0 Acute kidney failure with tubular necrosis; I42.1 Obstructive hypertrophic cardiomyopathy; F10.231 Alcohol dependence with withdrawal delirium; E11.65 Type 2 diabetes mellitus with hyperglycemia; D72.823 Leukemoid reaction; E03.9 Hypothyroidism, unspecified; E78.00 Pure hypercholesterolemia, unspecified; F41.9 Anxiety disorder, unspecified; H40.9 Unspecified glaucoma; I11.0 Hypertensive heart disease with heart failure; M54.42 Lumbago with sciatica, left side; I08.1 Rheumatic disorders of both mitral and tricuspid valves; E86.0 Dehydration; M19.90 Unspecified osteoarthritis, unspecified site; F32.9 Major depressive disorder, single episode, unspecified; Z98.891 History of uterine scar from previous surgery; Z82.49 Family history of ischemic heart disease and other diseases of the circulatory system; Z79.890 Hormone replacement therapy; Z79.899 Other long term (current) drug therapy; Z88.0 Allergy status to penicillin; Z91.011 Allergy to milk products; Z83.3 Family history of diabetes mellitus; Z82.5 Family history of asthma and other chronic lower respiratory diseases; Z79.84 Long term (current) use of oral hypoglycemic drugs; Z82.3 Family history of stroke
CPT/HCPCS: 36415; 71045; 80053; 80061; 80320; 82150; 82948; 83036; 83605; 83690; 83735; 84100; 84145; 84443; 84484; 85025; 85610; 85730; 87040; 87081; 93005; 93306; 93880; 94760; 96365; 96372; 96375; 97116; 97161; 97530; 99285; G0378; J1650; J1815; J2060; J2405; J3411; J7030

== ENCOUNTER 2019-02-15 14:39 | Observation (INO) | payer MEDICARE, MEDICAID ==
[~2019-02-15] VITALS: Ht 157.5 cm; Wt 72.7 kg
[~2019-02-15 14:39] MED LIST changes: +ALBU18HF2 INH; +ATOR20TA66 PO; +COR3.125T PO; +CYCL10TA10 PO; +GLIP5TAB13 PO; -HYDR-3686 PO; -LISI40TA4 PO; +LORA0.5T PO; +THIA100T66 PO
[2019-02-15 15:06] LABS: BASOPHILS % (AUTO) 0.2 % (0-1); EOSINOPHILS # (AUTO) 0.1 X10'3 (0-0.9); EOSINOPHILS % (AUTO) 0.9 % (0-6); HEMATOCRIT 40.1 % (35.0-45.0); HEMOGLOBIN 13.5 g/dl (12.0-16.0); LYMPHOCYTES # (AUTO) 1.1 X10'3 (1.1-4.8); LYMPHOCYTES % (AUTO) 8.4 % (21-51); MEAN CORPUSCULAR HEMOGLOBIN 30.9 PG (27.0-31.0); MEAN CORPUSCULAR HGB CONC 33.7 g/dL (33.0-36.5); MEAN CORPUSCULAR VOLUME 91.5 FL (78-98); MEAN PLATELET VOLUME 7.8 FL (7.4-10.4); MONOCYTES # (AUTO) 0.6 X10'3 (0-0.9); MONOCYTES % (AUTO) 4.8 % (2-12); NEUTROPHILS # (AUTO) 11.4 X10'3 (1.8-7.7); NEUTROPHILS % (AUTO) 85.7 % (42-75); PLATELET COUNT 157 X10'3 (140-440); RED BLOOD COUNT 4.39 X10'6 (4.20-5.60); RED CELL DISTRIBUTION WIDTH 13.2 % (11.5-14.5); WHITE BLOOD COUNT 13.3 X10'3 (4.5-11.0)
[2019-02-15 15:16] LABS: PARTIAL THROMBOPLASTIN TIME 23 SECONDS (22-32)
[2019-02-15 15:18] LABS: ALANINE AMINOTRANSFERASE 29 U/L (12-78); ALBUMIN 3.6 G/DL (3.4-5.0); ALBUMIN/GLOBULIN RATIO 1.1 (1.1-1.5); ALKALINE PHOSPHATASE 72 IU/L (46-116); ANION GAP 12 (8-16); ASPARTATE AMINO TRANSFERASE 18 U/L (10-37); BILIRUBIN,TOTAL 0.5 MG/DL (0.1-1.0); BLOOD UREA NITROGEN 31 MG/DL (7-18); BUN/CREATININE RATIO 21.8 (6.6-38.0); CALCIUM 8.5 MG/DL (8.5-10.1); CHLORIDE 100 MMOL/L (99-107); CREATININE 1.42 MG/DL (0.40-0.90); GLUCOSE 205 MG/DL (70-104); POTASSIUM 3.8 MMOL/L (3.5-5.1); SODIUM 135 MMOL/L (135-145); eGFR 37 ML/MIN
[2019-02-15] MEDS ORDERED: normal saline 1000ML IV soln IVB ONE (15:20)
[2019-02-15] MEDS ORDERED: mag hydrox/Alum hydrox/simeth 30ml oral suspension PO PRN (16:05)
[2019-02-15] MEDS ORDERED: ondansetron/PF 4mg/2ml inj IV PRN (16:05)
[2019-02-15] MEDS ORDERED: acetaminophen 325mg tablet PO PRN (16:05)
[2019-02-15] MEDS ORDERED: magnesium hydroxide 30ml (MOM) UD suspension PO PRN (16:05)
[2019-02-15] MEDS ORDERED: ATOR40TA72 PO (16:08)
[2019-02-15] MEDS: LORazepam 0.5 MG tablet PO PRN (16:17)
--- NOTE | 2019-02-15 16:17 | NUR ---
Attempted to obtain UA sample at this time per order, patient unable to urinate at this time, returned safely to bed.
--- NOTE | 2019-02-15 16:40 | NUR ---
Patient in room PCU 3014. I have received report from Jose Elias GOLD and had the opportunity to ask questions and assume patient care.
[2019-02-15 16:45] VITALS: BP 139/65
--- NOTE | 2019-02-15 16:45 | NUR ---
Received pt from ED stable. Patient denies chest pain. Tele box applied. Patient oriented to room and unit. Bed low/locked, side rails up x2, call light in reach.
[2019-02-15] MEDS ORDERED: BUSP15TA7 PO (16:46)
--- NOTE | 2019-02-15 18:00 | NUR ---
Problems reprioritized. Patient report given, questions answered & plan of care reviewed with Carol GOLD.
--- NOTE | 2019-02-15 18:46 | NUR ---
Patient in room PCU 3014. I have received report from ALLA Irene and had the opportunity to ask questions and assume patient care.
--- NOTE | 2019-02-15 18:47 | NUR ---
Sent to [facility] MESSAGE: ROOM 3014B, Alexia Greene: This patient has DM would you like to put her on the diabetic protocol?
[2019-02-15 19:00] VITALS: BP 122/36
[2019-02-15 19:07] LABS: CLARITY,URINE CLEAR (Clear); COLOR,URINE YELLOW (Yellow); GLUCOSE, URINE NEGATIVE (Neg); KETONES,URINE NEGATIVE (Neg); LEUKOCYTE ESTERASE ,URINE MODERATE (Neg); NITRITES, URINE NEGATIVE (Neg); OCCULT BLOOD,URINE TRACE-INTACT (Neg); PH,URINE 5.5 (4.8-8.0); PROTEIN,URINE NEGATIVE (Neg); UROBILINOGEN,URINE 0.2 E.U/dL (0.2-1.0)
[2019-02-15 19:11] LABS: UA COLLECTION TYPE NON-SPECIFIED
[2019-02-15 19:12] LABS: BACTERIA,URINE FEW /HPF (Neg); RBC,URINE 0-2 /HPF (0-2); RENAL CELLS, URINE FEW /HPF; SQUAMOUS EPITHELIAL CELL,UR FEW /LPF (FEW); WBC,URINE 0-4 /HPF (0-4)
[2019-02-15] MEDS ORDERED: albuterol 2.5 MG/3 ML nebule NEB PRN (19:30)
[2019-02-15] MEDS ORDERED: LORazepam 0.5 MG tablet PO PRN (19:30)
[2019-02-15] MEDS ORDERED: glucagon, human recombinant 1mg kit SUBCUT PRN (19:55)
[2019-02-15] MEDS ORDERED: insulin Lispro (HumaLOG) vial - multi-dose SQ SCH (19:55)
[2019-02-15] MEDS ORDERED: dextrose 50%-water 50ml dispensing syringe IV PRN ×2 (19:55)
[2019-02-15] MEDS ORDERED: MESSAGE TO PHARMACY PO ONE (19:55)
[2019-02-15] MEDS ORDERED: dextrose ORAL solution 15 GM/59 ML bottle PO PRN ×2 (19:55)
[2019-02-15] MEDS: gabapentin 300mg capsule PO SCH (20:06)
[2019-02-15] MEDS: busPIRone 15mg tablet PO SCH (20:06)
[2019-02-15] MEDS: thiamine 100mg tablet PO SCH (20:06)
[2019-02-15] MEDS: carVEDilol 3.125mg tablet PO SCH (20:07)
[2019-02-15] MEDS: normal saline 1000ml 1,000 ML IV SCH (20:11)
[2019-02-15] MEDS: heparin, porcine 5000 units/ml vial SQ SCH (20:12)
[2019-02-15 20:26] VITALS: BP 109/57
[2019-02-15] MEDS ORDERED: insulin glargine (Lantus) pen - multi-dose SQ SCH (21:00)
[2019-02-15] MEDS ORDERED: latanoprost 0.005% 2.5ml ophthalmic drops EACHEYE SCH (21:00)
[2019-02-15] MEDS ORDERED: traZODone 50mg tablet PO SCH (21:00)
[2019-02-15 21:26] LABS: HEMOGLOBIN A1C 6.3 % (4.5-6.2)
[2019-02-15 22:00] VITALS: BP 91/49
[2019-02-16 00:03] VITALS: BP 99/57
--- NOTE | 2019-02-16 00:16 | NUR ---
Patient is non-compliant with her call light, though I have educated her various times about her risk of having a syncopal episode. Educated her about her low BP, and repeated previous syncopal episodes and reminded her bout her high fall risk. She states that she understands and will now use her call light.
[2019-02-16 02:00] VITALS: BP 116/48
[2019-02-16] MEDS: normal saline 1000ml 1,000 ML IV SCH (02:01)
[2019-02-16 02:41] LABS: ALBUMIN 3.1 G/DL (3.4-5.0); ANION GAP 9 (8-16); BLOOD UREA NITROGEN 31 MG/DL (7-18); BUN/CREATININE RATIO 26.1 (6.6-38.0); CALCIUM 7.8 MG/DL (8.5-10.1); CHLORIDE 106 MMOL/L (99-107); CREATININE 1.19 MG/DL (0.40-0.90); GLUCOSE 97 MG/DL (70-104); POTASSIUM 3.5 MMOL/L (3.5-5.1); SODIUM 139 MMOL/L (135-145); TOTAL CARBON DIOXIDE 24.2 MMOL/L (24-32); eGFR 45 ML/MIN
[2019-02-16 02:47] LABS: BASOPHILS % (AUTO) 0.2 % (0-1); EOSINOPHILS # (AUTO) 0.1 X10'3 (0-0.9); EOSINOPHILS % (AUTO) 1.4 % (0-6); HEMATOCRIT 35.4 % (35.0-45.0); HEMOGLOBIN 12.1 g/dl (12.0-16.0); LYMPHOCYTES # (AUTO) 1.2 X10'3 (1.1-4.8); LYMPHOCYTES % (AUTO) 14.3 % (21-51); MEAN CORPUSCULAR HEMOGLOBIN 31.5 PG (27.0-31.0); MEAN CORPUSCULAR HGB CONC 34.2 g/dL (33.0-36.5); MEAN CORPUSCULAR VOLUME 92.1 FL (78-98); MEAN PLATELET VOLUME 8.1 FL (7.4-10.4); MONOCYTES # (AUTO) 0.5 X10'3 (0-0.9); MONOCYTES % (AUTO) 5.7 % (2-12); NEUTROPHILS # (AUTO) 6.7 X10'3 (1.8-7.7); NEUTROPHILS % (AUTO) 78.4 % (42-75); PLATELET COUNT 112 X10'3 (140-440); RED BLOOD COUNT 3.85 X10'6 (4.20-5.60); RED CELL DISTRIBUTION WIDTH 12.8 % (11.5-14.5); WHITE BLOOD COUNT 8.6 X10'3 (4.5-11.0)
--- NOTE | 2019-02-16 06:33 | NUR ---
Problems reprioritized. Patient report given, questions answered & plan of care reviewed with ALLA Franco.
--- NOTE | 2019-02-16 06:43 | NUR ---
Patient in room PCU 3014. I have received report from Carol GOLD and had the opportunity to ask questions and assume patient care.
[2019-02-16 07:00] VITALS: BP 134/65
[2019-02-16] MEDS ORDERED: levoTHYROXINE 25mcg tablet PO SCH (07:30)
[2019-02-16] MEDS: busPIRone 15mg tablet PO SCH (07:42)
[2019-02-16] MEDS: gabapentin 300mg capsule PO SCH (07:42)
[2019-02-16] MEDS: carVEDilol 3.125mg tablet PO SCH (07:42)
[2019-02-16] MEDS: thiamine 100mg tablet PO SCH (07:43)
[2019-02-16] MEDS: heparin, porcine 5000 units/ml vial SQ SCH (07:43)
[2019-02-16] MEDS: LORazepam 0.5 MG tablet PO PRN (07:43)
[2019-02-16] MEDS ORDERED: FLUoxetine 20mg capsule PO SCH (08:00)
[2019-02-16] MEDS ORDERED: atorvastatin 20mg tablet PO SCH (08:00)
[2019-02-16] MEDS ORDERED: cetirizine 10mg tablet PO SCH (08:00)
[2019-02-16 09:44] VITALS: BP_SYST 103; BP_SYST 131; BP_SYST 99; BP_DIAS 67; BP_DIAS 75; BP_DIAS 78
[2019-02-16] MEDS ORDERED: ATI0.5T PO (10:17)
--- NOTE | 2019-02-16 10:34 | NUR ---
PAGER ID: [phone] MESSAGE: Boy [id number]. Need a hard copy Rx for the discharge Ativan please. Joan [phone]
[2019-02-16 11:00] VITALS: BP 148/75
--- NOTE | 2019-02-16 12:18 | NUR ---
Malnutrition consult: Pt admit w/ chest pain r/t GERD per MD note. Hx T2DM, HTN. Pt has no weakness, no significant edema/wounds, and PO 100% heart healthy meals w/ BMI 29 meeting needs. Does not meet malnutrition criteria at this time. Addendum: 02/16/19 at [address] Amended: Links added.
--- NOTE | 2019-02-16 13:30 | NUR ---
Patient was discharged at 1330 home. All belongings were sent with patient and discharge packet and instructions were reviewed before signing and being sent with patient. PIV was removed with cannula intact, telemetry monitoring removed, prescription hard copy sent with patient. Patient was wheeled down by staff and left via private vehicle with friend.
== END 2019-02-16 13:30 | disposition home or self-care (01) ==
LOC: ER 14:40 → PCU 3S 16:48
PROVIDERS: ADMIT Family Medicine; ATTEND Family Medicine
DX: R07.89 Other chest pain (principal); F41.9 Anxiety disorder, unspecified; N17.9 Acute kidney failure, unspecified; E86.0 Dehydration; R19.7 Diarrhea, unspecified; R55 Syncope and collapse; F32.9 Major depressive disorder, single episode, unspecified; I11.0 Hypertensive heart disease with heart failure; J44.9 Chronic obstructive pulmonary disease, unspecified; I50.9 Heart failure, unspecified; E11.9 Type 2 diabetes mellitus without complications; E03.9 Hypothyroidism, unspecified; E78.00 Pure hypercholesterolemia, unspecified; Z86.73 Personal history of transient ischemic attack (TIA), and cerebral infarction without residual deficits; Z95.1 Presence of aortocoronary bypass graft
CPT/HCPCS: 36415; 71045; 80048; 80053; 81001; 82948; 83036; 84484; 85025; 85610; 85730; 87088; 93005; 94760; 96360; 96361; 96372; 99284; G0378; J1644; J1815; J7030; 87081

== ENCOUNTER 2019-06-05 14:02 | Inpatient (IN) | payer MEDICARE, MEDICAID ==
[~2019-06-05] VITALS: Ht 157.5 cm; Wt 68.2 kg
[~2019-06-05 14:02] MED LIST changes: +ATI0.5T PO; -ATOR20TA66 PO; +ATOR40TA72 PO; +BUSP15TA7 PO; -BUSP5TAB3 PO; -CYCL10TA10 PO; -LORA0.5T PO; -OMEP-50 PO
[2019-06-05 14:40] LABS: BASOPHILS # (AUTO) 0.1 X10'3 (0-0.2); BASOPHILS % (AUTO) 0.8 % (0-1); EOSINOPHILS % (AUTO) 0.4 % (0-6); HEMATOCRIT 43.5 % (35.0-45.0); HEMOGLOBIN 15.1 g/dl (12.0-16.0); LYMPHOCYTES # (AUTO) 1.5 X10'3 (1.1-4.8); LYMPHOCYTES % (AUTO) 20.2 % (21-51); MEAN CORPUSCULAR HEMOGLOBIN 32.2 PG (27.0-31.0); MEAN CORPUSCULAR HGB CONC 34.7 g/dL (33.0-36.5); MEAN PLATELET VOLUME 7.6 FL (7.4-10.4); MONOCYTES # (AUTO) 0.9 X10'3 (0-0.9); MONOCYTES % (AUTO) 11.6 % (2-12); NEUTROPHILS # (AUTO) 5.1 X10'3 (1.8-7.7); PLATELET COUNT 189 X10'3 (140-440); RED BLOOD COUNT 4.68 X10'6 (4.20-5.60); RED CELL DISTRIBUTION WIDTH 13.7 % (11.5-14.5); WHITE BLOOD COUNT 7.6 X10'3 (4.5-11.0)
[2019-06-05 14:53] LABS: ALANINE AMINOTRANSFERASE 48 U/L (12-78); ALBUMIN 4.4 G/DL (3.4-5.0); ALBUMIN/GLOBULIN RATIO 1.1 (1.1-1.5); ALKALINE PHOSPHATASE 99 IU/L (46-116); ANION GAP 16 (8-16); ASPARTATE AMINO TRANSFERASE 51 U/L (10-37); BILIRUBIN,TOTAL 0.9 MG/DL (0.1-1.0); BLOOD UREA NITROGEN 21 MG/DL (7-18); BUN/CREATININE RATIO 23.3 (6.6-38.0); CALCIUM 9.6 MG/DL (8.5-10.1); CHLORIDE 96 MMOL/L (99-107); GLUCOSE 167 MG/DL (70-104); POTASSIUM 4.4 MMOL/L (3.5-5.1); SODIUM 136 MMOL/L (135-145); TOTAL CARBON DIOXIDE 23.9 MMOL/L (24-32); TOTAL PROTEIN 8.3 G/DL (6.4-8.2); eGFR 62 ML/MIN
[2019-06-05] MEDS ORDERED: LORazepam 2 mg/ml vial IV ONE (16:25)
[2019-06-05] MEDS ORDERED: normal saline 1000ML IV soln IVB ONE (16:25)
[2019-06-05] MEDS ORDERED: albuterol 2.5 MG/3 ML nebule NEB ONE (17:35)
[2019-06-05 17:55] LABS: D-DIMER 2.13 MG/L FEU (0-0.50)
[2019-06-05] MEDS ORDERED: iohexol 350MG/ML 100ml bottle IV ONE (18:36)
[2019-06-05] MEDS: MESSAGE TO NURSING PO SCH (19:13)
[2019-06-05] MEDS ORDERED: furosemide 10 MG/1 ML 10ml inj IV ONE (19:20)
[2019-06-05] MEDS ORDERED: magnesium hydroxide 30ml (MOM) UD suspension PO PRN (19:45)
[2019-06-05] MEDS ORDERED: acetaminophen 325mg tablet PO PRN ×2 (19:45)
[2019-06-05] MEDS ORDERED: potassium Cl 20 mEq SR tablet PO PRN ×2 (19:45)
[2019-06-05] MEDS ORDERED: magnesium Cl slow-release 64mg tablet PO PRN (19:45)
[2019-06-05] MEDS ORDERED: mag hydrox/Alum hydrox/simeth 30ml oral suspension PO PRN (19:45)
[2019-06-05] MEDS ORDERED: magnesium 2GM in 50ml NS 50 ML IV PRN (19:45)
[2019-06-05] MEDS ORDERED: potassium CL 10mEq/100ml bag 100 ML IV PRN ×2 (19:45)
[2019-06-05] MEDS ORDERED: magnesium 4gm in 100ml NS 100 ML IV PRN (19:45)
[2019-06-05] MEDS ORDERED: ondansetron/PF 4mg/2ml inj IV PRN (19:45)
[2019-06-05] MEDS: K and/or MAG REPLACEMENT MC SCH (20:00)
[2019-06-05 20:43] LABS: CLARITY,URINE SLIGHTLY CLOUDY (Clear); COLOR,URINE YELLOW (Yellow); GLUCOSE, URINE NEGATIVE (Neg); KETONES,URINE 15 mg/dl (Neg); LEUKOCYTE ESTERASE ,URINE LARGE (Neg); NITRITES, URINE NEGATIVE (Neg); OCCULT BLOOD,URINE SMALL (Neg); PH,URINE 5.5 (4.8-8.0); PROTEIN,URINE 30 mg/dl (Neg); UROBILINOGEN,URINE 0.2 E.U/dL (0.2-1.0)
[2019-06-05 20:50] LABS: UA COLLECTION TYPE CLN CATCH MIDSTREAM
[2019-06-05 20:51] LABS: BACTERIA,URINE FEW /HPF (Neg); RBC,URINE 0-2 /HPF (0-2); SQUAMOUS EPITHELIAL CELL,UR FEW /LPF (FEW); WBC CLUMPS,URINE FEW /HPF (NEGATIVE); WBC,URINE 30-50 /HPF (0-4)
[2019-06-05 21:08] LABS: URINE AMPHETAMINE SCREEN NEGATIVE (Neg); URINE BARBITUATE SCREEN NEGATIVE (Neg); URINE BENZODIAZEPINES SCREEN NEGATIVE (Neg); URINE CANNABINOID SCREEN NEGATIVE (Neg); URINE COCAINE SCREEN NEGATIVE (Neg); URINE METHADONE SCREEN NEGATIVE (Neg); URINE OPIATE SCREEN NEGATIVE (Neg); URINE PHENCYCLIDINE SCREEN NEGATIVE (Neg)
[2019-06-05] MEDS ORDERED: MESSAGE TO PHARMACY PO ONE (22:20)
[2019-06-05] MEDS ORDERED: glucagon, human recombinant 1mg kit SUBCUT PRN (22:20)
[2019-06-05] MEDS ORDERED: dextrose ORAL solution 15 GM/59 ML bottle PO PRN ×2 (22:20)
[2019-06-05] MEDS ORDERED: dextrose 50%-water 50ml dispensing syringe IV PRN ×2 (22:20)
[2019-06-05] MEDS ORDERED: nitroGLYCERIN 0.4mg SUBLingual tab SL PRN (22:20)
[2019-06-05 22:25] VITALS: BP 126/60
--- NOTE | 2019-06-05 22:25 | NUR ---
Patient in room PCU 3012. I have received report from Cheryl GOLD (ER) and had the opportunity to ask questions and assume patient care. Patient arrived to telemetry by wheelchair. She was able to ambulate into bed with slight assistance. Patient oriented to room and call light. Tele monitoring started, VS taken, patient is stable, fall risk precautions in place. All belongings are on patient or at bedside.
[2019-06-06] VITALS (8 sets, daily range): BP systolic 108–131; BP diastolic 58–81
[2019-06-06 02:54] LABS: BASOPHILS % (AUTO) 0.4 % (0-1); EOSINOPHILS % (AUTO) 0.6 % (0-6); HEMATOCRIT 39.1 % (35.0-45.0); HEMOGLOBIN 13.4 g/dl (12.0-16.0); LYMPHOCYTES # (AUTO) 1.2 X10'3 (1.1-4.8); LYMPHOCYTES % (AUTO) 23.3 % (21-51); MEAN CORPUSCULAR HEMOGLOBIN 32.2 PG (27.0-31.0); MEAN CORPUSCULAR HGB CONC 34.2 g/dL (33.0-36.5); MEAN CORPUSCULAR VOLUME 94.1 FL (78-98); MEAN PLATELET VOLUME 7.8 FL (7.4-10.4); MONOCYTES # (AUTO) 0.6 X10'3 (0-0.9); MONOCYTES % (AUTO) 11.7 % (2-12); NEUTROPHILS # (AUTO) 3.2 X10'3 (1.8-7.7); PLATELET COUNT 138 X10'3 (140-440); RED BLOOD COUNT 4.16 X10'6 (4.20-5.60); RED CELL DISTRIBUTION WIDTH 13.6 % (11.5-14.5); WHITE BLOOD COUNT 5.1 X10'3 (4.5-11.0)
[2019-06-06 03:09] LABS: ALBUMIN 3.7 G/DL (3.4-5.0); ANION GAP 6 (8-16); BLOOD UREA NITROGEN 29 MG/DL (7-18); BUN/CREATININE RATIO 28.7 (6.6-38.0); CALCIUM 9.3 MG/DL (8.5-10.1); CHLORIDE 100 MMOL/L (99-107); CREATININE 1.01 MG/DL (0.40-0.90); GLUCOSE 197 MG/DL (70-104); MAGNESIUM 2.2 MG/DL (1.5-2.4); POTASSIUM 4.1 MMOL/L (3.5-5.1); SODIUM 136 MMOL/L (135-145); TOTAL CARBON DIOXIDE 29.8 MMOL/L (24-32); eGFR 54 ML/MIN
--- NOTE | 2019-06-06 06:21 | NUR ---
Problems reprioritized. Patient report given, questions answered & plan of care reviewed with Emili Limon RN.
--- NOTE | 2019-06-06 06:59 | NUR ---
Patient in room PCU 3012. I have received report from Fouzia GOLD and had the opportunity to ask questions and assume patient care. All patient needs met at this time.
[2019-06-06] MEDS ORDERED: furosemide 20 MG/2 ML vial IV SCH ×2 (08:00→20:00)
[2019-06-06] MEDS: K and/or MAG REPLACEMENT MC SCH ×2 (08:00→20:00)
[2019-06-06] MEDS: aspirin 81mg tablet.DR PO SCH (08:17)
[2019-06-06] MEDS: enoxaparin 40mg/0.4ml syringe SQ SCH (08:20)
--- NOTE | 2019-06-06 08:46 | NUR ---
Paged Dr Dias about checking Meds MESSAGE: Re: Alexia Greene [id number] Med Rec has been complete, can you please review. Thanks Emili Coker [phone]
[2019-06-06] MEDS ORDERED: furosemide 40mg/4ml inj IV ONE (09:40)
[2019-06-06] MEDS: MESSAGE TO NURSING PO SCH (10:00)
[2019-06-06] MEDS ORDERED: pneumococcal 23-VAL P-sac vacc 25 mcg/0.5ml vial IMVAC ONE (10:00)
[2019-06-06] MEDS: lisinopril 10 MG tablet PO SCH (10:23)
[2019-06-06] MEDS: atorvastatin 20mg tablet PO SCH (10:23)
[2019-06-06] MEDS: carVEDilol 3.125mg tablet PO SCH ×2 (10:24→21:31)
--- NOTE | 2019-06-06 10:28 | NUR ---
Paged Dr Dias MESSAGE: Re: Nadir Greene Rm 1854Y FYI I gave 20mg/2ml Lasix this am, do you still want me to give 40mg/4ml? Also pt is requesting Ativan, she takes it regularly at home. Thank you Emili Coker [phone]
[2019-06-06] MEDS: gabapentin 300mg capsule PO SCH ×2 (13:38→21:33)
[2019-06-06] MEDS: insulin Lispro (HumaLOG) vial - multi-dose SQ SCH ×2 (17:30→19:29)
--- NOTE | 2019-06-06 17:34 | NUR ---
Administered correctional dose of insulin to patient at this time per primary RN request. Educated patient on signs/symptoms of hypoglycemia as well as educated patient that she only received insulin to cover her FSBG and not carbs eaten for dinner. Advised patient that the max amount of insulin that she can receive for dinner tonight (60carbs) is 6 units and to alert her RN to only administer insulin to cover carb count. Pt verbalizes understanding.
--- NOTE | 2019-06-06 18:46 | NUR ---
Patient in room PCU 3012. I have received report from Emili GOLD and had the opportunity to ask questions and assume patient care.
--- NOTE | 2019-06-06 18:54 | NUR ---
Problems reprioritized. Patient report given, questions answered & plan of care reviewed with Chrystal GOLD. All patient needs met at this time.
[2019-06-06] MEDS ORDERED: carVEDilol 3.125mg tablet PO SCH (20:00)
[2019-06-06] MEDS ORDERED: insulin glargine (Lantus) pen - multi-dose SQ SCH (21:00)
[2019-06-06] MEDS ORDERED: traZODone 50mg tablet PO SCH (21:00)
[2019-06-06] MEDS ORDERED: latanoprost 0.005% 2.5ml ophthalmic drops EACHEYE SCH (21:00)
[2019-06-06] MEDS: LORazepam 0.5 MG tablet PO PRN (21:28)
[2019-06-06] MEDS: busPIRone 15mg tablet PO SCH (21:30)
[2019-06-06] MEDS: thiamine 100mg tablet PO SCH (21:31)
[2019-06-06] MEDS ORDERED: normal saline 1000ml 1,000 ML IV SCH (22:30)
[2019-06-07] MEDS: CefTRIAXone/D5W-Rocephin 1gm 50 ML IV SCH ×2 (00:05→09:43)
[2019-06-07 02:00] VITALS: BP 98/60
[2019-06-07 06:24] LABS: ALBUMIN 3.3 G/DL (3.4-5.0); ANION GAP 10 (8-16); CALCIUM 8.5 MG/DL (8.5-10.1); CHLORIDE 98 MMOL/L (99-107); CREATININE 1.42 MG/DL (0.40-0.90); GLUCOSE 175 MG/DL (70-104); MAGNESIUM 1.9 MG/DL (1.5-2.4); POTASSIUM 3.4 MMOL/L (3.5-5.1); SODIUM 134 MMOL/L (135-145); TOTAL CARBON DIOXIDE 26.5 MMOL/L (24-32); eGFR 37 ML/MIN
[2019-06-07 06:29] LABS: BASOPHILS % (AUTO) 0.2 % (0-1); EOSINOPHILS # (AUTO) 0.1 X10'3 (0-0.9); EOSINOPHILS % (AUTO) 2.3 % (0-6); HEMATOCRIT 33.7 % (35.0-45.0); HEMOGLOBIN 11.8 g/dl (12.0-16.0); LYMPHOCYTES # (AUTO) 0.9 X10'3 (1.1-4.8); LYMPHOCYTES % (AUTO) 20.3 % (21-51); MEAN CORPUSCULAR HEMOGLOBIN 32.8 PG (27.0-31.0); MEAN CORPUSCULAR HGB CONC 34.8 g/dL (33.0-36.5); MEAN CORPUSCULAR VOLUME 94.1 FL (78-98); MEAN PLATELET VOLUME 8.4 FL (7.4-10.4); MONOCYTES # (AUTO) 0.4 X10'3 (0-0.9); MONOCYTES % (AUTO) 8.8 % (2-12); NEUTROPHILS # (AUTO) 3.2 X10'3 (1.8-7.7); NEUTROPHILS % (AUTO) 68.4 % (42-75); PLATELET COUNT 105 X10'3 (140-440); RED BLOOD COUNT 3.58 X10'6 (4.20-5.60); RED CELL DISTRIBUTION WIDTH 13.2 % (11.5-14.5); WHITE BLOOD COUNT 4.6 X10'3 (4.5-11.0)
[2019-06-07 06:56] VITALS: BP 95/63
[2019-06-07 07:16] LABS: BLOOD UREA NITROGEN 46 MG/DL (7-18); BUN/CREATININE RATIO 32.4 (6.6-38.0)
--- NOTE | 2019-06-07 07:50 | NUR ---
Problems reprioritized. Patient report given, questions answered & plan of care reviewed with Joan Bello RN.
[2019-06-07] MEDS ORDERED: FLUoxetine 20mg capsule PO SCH (08:00)
[2019-06-07] MEDS ORDERED: furosemide 20 MG/2 ML vial IV SCH (08:00)
[2019-06-07] MEDS ORDERED: levoTHYROXINE 75mcg tablet PO SCH (08:00)
[2019-06-07] MEDS ORDERED: cetirizine 10mg tablet PO SCH (08:00)
[2019-06-07] MEDS ORDERED: levoTHYROXINE 25mcg tablet PO SCH (08:00)
[2019-06-07] MEDS: K and/or MAG REPLACEMENT MC SCH (08:00)
[2019-06-07] MEDS: busPIRone 15mg tablet PO SCH (09:40)
[2019-06-07] MEDS: thiamine 100mg tablet PO SCH (09:41)
[2019-06-07] MEDS: aspirin 81mg tablet.DR PO SCH (09:41)
[2019-06-07] MEDS: gabapentin 300mg capsule PO SCH (09:41)
[2019-06-07] MEDS: lisinopril 10 MG tablet PO SCH (09:41)
[2019-06-07] MEDS: atorvastatin 20mg tablet PO SCH (09:42)
[2019-06-07] MEDS: carVEDilol 3.125mg tablet PO SCH (09:42)
[2019-06-07] MEDS: insulin Lispro (HumaLOG) vial - multi-dose SQ SCH (09:46)
[2019-06-07] MEDS: enoxaparin 40mg/0.4ml syringe SQ SCH (09:47)
[2019-06-07] MEDS: LORazepam 0.5 MG tablet PO PRN (09:50)
[2019-06-07] MEDS: MESSAGE TO NURSING PO SCH (10:00)
[2019-06-07 11:00] VITALS: BP 119/76
[2019-06-07] MEDS ORDERED: LEVO75TA7 PO (11:40)
[2019-06-07] MEDS ORDERED: CEFD300C3 PO (11:40)
[2019-06-07] MEDS ORDERED: NITR0.4T51 SL (11:40)
[2019-06-07] MEDS ORDERED: COR3.125T PO (11:40)
[2019-06-07] MEDS ORDERED: ASPI-1071 PO (11:40)
--- NOTE | 2019-06-07 14:55 | NUR ---
Patient stable for discharge per MD. Discharge instructions given to patient. All questions and concerns addressed. New medications faxed to [facility]. Tele monitor removed and retuned to [employer]. PIV d/c'd, catheter intact. Patient transported off unit via wheelchair by staff to private vehicle.
== END 2019-06-07 14:55 | disposition home or self-care (01) | DRG 292 ==
LOC: ER 14:03 → ED HOLD 19:42 → PCU 3S 22:25
PROVIDERS: ADMIT Hospitalist; ATTEND Family Medicine
PROC: B32T1ZZ Computerized Tomography (CT Scan) of Left Pulmonary Artery using Low Osmolar Contrast (ICD-10-PCS; 2019-06-05)
PROC: B3201ZZ Computerized Tomography (CT Scan) of Thoracic Aorta using Low Osmolar Contrast (ICD-10-PCS; 2019-06-05)
PROC: B32S1ZZ Computerized Tomography (CT Scan) of Right Pulmonary Artery using Low Osmolar Contrast (ICD-10-PCS; 2019-06-05)
PROC: 3E0234Z Introduction of Serum, Toxoid and Vaccine into Muscle, Percutaneous Approach (ICD-10-PCS; principal; 2019-06-06)
DX: I11.0 Hypertensive heart disease with heart failure (principal); N39.0 Urinary tract infection, site not specified; I50.33 Acute on chronic diastolic (congestive) heart failure; E03.9 Hypothyroidism, unspecified; E11.9 Type 2 diabetes mellitus without complications; E78.5 Hyperlipidemia, unspecified; F32.9 Major depressive disorder, single episode, unspecified; M19.90 Unspecified osteoarthritis, unspecified site; F41.0 Panic disorder [episodic paroxysmal anxiety]; D64.9 Anemia, unspecified; G89.4 Chronic pain syndrome; Z79.890 Hormone replacement therapy; Z82.3 Family history of stroke; Z82.49 Family history of ischemic heart disease and other diseases of the circulatory system; Z82.5 Family history of asthma and other chronic lower respiratory diseases; Z83.3 Family history of diabetes mellitus; Z87.440 Personal history of urinary (tract) infections; Z23 Encounter for immunization; Z88.0 Allergy status to penicillin; Z91.011 Allergy to milk products; Z79.899 Other long term (current) drug therapy
CPT/HCPCS: 36415; 71045; 71275; 80048; 80053; 80305; 81001; 82948; 83036; 83735; 83880; 84443; 84484; 85025; 85379; 87081; 87088; 90732; 93005; 93306; 94640; 94760; 96374; 99285; G0378; J0696; J1650; J1815; J1940; J2060; J7030; Q9967

== ENCOUNTER 2021-09-12 16:30 | Inpatient (IN) | payer MEDICARE, MEDICAID ==
[~2021-09-12] VITALS: Ht 157.5 cm; Wt 59.1 kg
[~2021-09-12 16:30] MED LIST changes: +ASPI-1071 PO; -CETI-102 PO; +CETI-90 PO; +LATA2.5D14 EACHEYE; -LATA2.5D2 EACHEYE; -LEVO50TA78 PO; +LEVO75TA7 PO; +NITR0.4T51 SL
--- NOTE | 2021-09-12 18:30 | NUR ---
PT WITH FAMILY AT BEDSIDE. NO COMPLAINTS AT PRESENT. DISTAL CSM INTACT BILATERALLY TO LOWER EXTREMITIES. GOOD PULSES ON DORSALIS PEDIS BILATERALLY.
[2021-09-12] MEDS ORDERED: ondansetron/PF 4mg/2ml inj IV ONE (19:35)
[2021-09-12] MEDS: morphine 4 MG/ML inj SYRINge IV PRN ×2 (19:50→23:32)
[2021-09-12 19:59] LABS: BASOPHILS % (AUTO) 0.4 % (0-1); EOSINOPHILS # (AUTO) 0.1 X10'3 (0-0.9); EOSINOPHILS % (AUTO) 1.6 % (0-6); HEMATOCRIT 36.3 % (35.0-45.0); HEMOGLOBIN 12.3 g/dl (12.0-16.0); LYMPHOCYTES # (AUTO) 0.9 X10'3 (1.1-4.8); LYMPHOCYTES % (AUTO) 18.4 % (21-51); MEAN CORPUSCULAR HEMOGLOBIN 33.1 PG (27.0-31.0); MEAN CORPUSCULAR HGB CONC 33.8 g/dL (33.0-36.5); MEAN PLATELET VOLUME 8.5 FL (7.4-10.4); MONOCYTES # (AUTO) 0.5 X10'3 (0-0.9); MONOCYTES % (AUTO) 10.1 % (2-12); NEUTROPHILS # (AUTO) 3.3 X10'3 (1.8-7.7); NEUTROPHILS % (AUTO) 69.5 % (42-75); PLATELET COUNT 79 X10'3 (140-440); RED BLOOD COUNT 3.71 X10'6 (4.20-5.60); RED CELL DISTRIBUTION WIDTH 12.3 % (11.5-14.5); WHITE BLOOD COUNT 4.7 X10'3 (4.5-11.0)
[2021-09-12 20:12] LABS: APTT 31 SECONDS (22-32)
[2021-09-12 20:17] LABS: ALANINE AMINOTRANSFERASE 34 U/L (12-78); ALBUMIN 3.3 G/DL (3.4-5.0); ALBUMIN/GLOBULIN RATIO 0.7 (1.1-1.5); ALKALINE PHOSPHATASE 135 IU/L (46-116); ANION GAP 11 (8-16); ASPARTATE AMINO TRANSFERASE 51 U/L (10-37); BILIRUBIN,TOTAL 0.6 MG/DL (0.1-1.0); BLOOD UREA NITROGEN 9 MG/DL (7-18); BUN/CREATININE RATIO 13.2 (6.6-38.0); CALCIUM 9.3 MG/DL (8.5-10.1); CHLORIDE 102 MMOL/L (99-107); CREATININE 0.68 MG/DL (0.40-0.90); GLUCOSE 248 MG/DL (70-104); POTASSIUM 3.6 MMOL/L (3.5-5.1); SODIUM 135 MMOL/L (135-145); TOTAL CARBON DIOXIDE 21.7 MMOL/L (24-32); TOTAL PROTEIN 7.8 G/DL (6.4-8.2); eGFR 85 ML/MIN
[2021-09-12] MEDS ORDERED: temazepam 15mg capsule PO PRN (21:00)
[2021-09-12] MEDS ORDERED: HYDROcodone/acetaminophen 5mg/325mg tablet PO PRN (21:15)
[2021-09-12] MEDS ORDERED: morphine 2 MG/ML inj. syringe IV PRN ×2 (21:15)
[2021-09-12] MEDS ORDERED: magnesium hydroxide 30ml (MOM) UD suspension PO PRN (21:15)
[2021-09-12] MEDS ORDERED: magnesium Cl slow-release 64mg tablet PO PRN (21:15)
[2021-09-12] MEDS ORDERED: ondansetron/PF 4mg/2ml inj IV PRN (21:15)
[2021-09-12] MEDS ORDERED: acetaminophen 325mg tablet PO PRN (21:15)
[2021-09-12] MEDS ORDERED: potassium CL 10mEq/100ml bag 100 ML IV PRN (21:15)
[2021-09-12] MEDS ORDERED: potassium Cl 20 mEq SR tablet PO PRN ×2 (21:15)
[2021-09-12] MEDS ORDERED: mag hydrox/Alum hydrox/simeth 30ml oral suspension PO PRN (21:15)
[2021-09-12] MEDS ORDERED: magnesium 4gm in 100ml NS 100 ML IV PRN (21:15)
[2021-09-12] MEDS ORDERED: magnesium 2GM in 50ml NS 50 ML IV PRN (21:15)
[2021-09-12 21:32] LABS: CLARITY,URINE CLEAR (Clear); COLOR,URINE YELLOW (Yellow); GLUCOSE, URINE >=1000 mg/dl (Neg); KETONES,URINE NEGATIVE (Neg); LEUKOCYTE ESTERASE ,URINE NEGATIVE (Neg); NITRITES, URINE NEGATIVE (Neg); OCCULT BLOOD,URINE NEGATIVE (Neg); PROTEIN,URINE NEGATIVE (Neg); UROBILINOGEN,URINE 0.2 E.U/dL (0.2-1.0)
[2021-09-12 21:35] LABS: MAGNESIUM 1.9 MG/DL (1.5-2.4)
[2021-09-12 21:39] LABS: UA COLLECTION TYPE FOLEY CATH
[2021-09-12 21:42] LABS: BACTERIA,URINE FEW /HPF (Neg); MUCUS STRANDS NONE SEEN /LPF (Neg); RBC,URINE 0-2 /HPF (0-2); SQUAMOUS EPITHELIAL CELL,UR FEW /LPF (FEW); WBC,URINE 0-4 /HPF (0-4)
[2021-09-12] MEDS ORDERED: glucagon, human recombinant 1mg kit SUBCUT PRN (22:45)
[2021-09-12] MEDS ORDERED: MESSAGE TO PHARMACY PO ONE (22:45)
[2021-09-12] MEDS ORDERED: dextrose 50%-water 50ml dispensing syringe IV PRN ×2 (22:45)
[2021-09-12] MEDS ORDERED: DEXTROSE 15 GM of carb/4 tabs (each vial/BOTTLE has 4 tablets) PO PRN ×2 (22:45)
--- NOTE | 2021-09-12 22:53 | NUR ---
Received report from ALLA wolfe VSS
--- NOTE | 2021-09-12 23:42 | NUR ---
Pt arrived on [facility]
[2021-09-12 23:50] VITALS: BP 118/69
--- NOTE | 2021-09-13 00:09 | NUR ---
PAGER ID: [phone] MESSAGE: Pt RM 354 Alexia Carroll Pt states she uses ETOH daily. Pt shaking
[2021-09-13] MEDS ORDERED: LORazepam 2 mg/ml vial IV PRN (00:15)
[2021-09-13] MEDS ORDERED: haloperidol 5mg tablet PO PRN ×2 (00:15)
[2021-09-13] MEDS ORDERED: cloNIDine 0.1 mg tablet PO PRN (00:15)
[2021-09-13] MEDS ORDERED: mag hydrox/Alum hydrox/simeth 30ml oral suspension PO PRN (00:15)
[2021-09-13] MEDS ORDERED: haloperidol lactate 5mg/ml inj IM PRN ×2 (00:15)
[2021-09-13] MEDS: LORazepam 2 mg/ml vial IV PRN ×7 (00:34→21:14)
[2021-09-13 05:18] VITALS: BP 121/65
[2021-09-13] MEDS: HYDROcodone/acetaminophen 10/325mg tab PO PRN ×3 (05:21→23:08)
[2021-09-13 06:00] VITALS: BP 165/65
[2021-09-13 06:26] LABS: ALANINE AMINOTRANSFERASE 32 U/L (12-78); ALBUMIN/GLOBULIN RATIO 0.7 (1.1-1.5); ALKALINE PHOSPHATASE 113 IU/L (46-116); AMYLASE 25 U/L (25-115); ANION GAP 9 (8-16); ASPARTATE AMINO TRANSFERASE 48 U/L (10-37); BASOPHILS % (AUTO) 0.3 % (0-1); BILIRUBIN,TOTAL 1.2 MG/DL (0.1-1.0); BLOOD UREA NITROGEN 11 MG/DL (7-18); BUN/CREATININE RATIO 16.2 (6.6-38.0); CALCIUM 8.7 MG/DL (8.5-10.1); CHLORIDE 103 MMOL/L (99-107); CHOL/HDL RATIO 3.8 (0.00-4.99); CHOLESTEROL 144 MG/DL (0-200); CREATININE 0.68 MG/DL (0.40-0.90); EOSINOPHILS # (AUTO) 0.2 X10'3 (0-0.9); EOSINOPHILS % (AUTO) 3.3 % (0-6); GLUCOSE 178 MG/DL (70-104); HDL CHOLESTEROL 38 MG/DL (35-60); HEMATOCRIT 35.3 % (35.0-45.0); HEMOGLOBIN 12.1 g/dl (12.0-16.0); LDL CHOLESTEROL 93 MG/DL (50-100); LIPASE < 50 U/L (73-393); LYMPHOCYTES # (AUTO) 0.8 X10'3 (1.1-4.8); LYMPHOCYTES % (AUTO) 16.2 % (21-51); MAGNESIUM 1.7 MG/DL (1.5-2.4); MEAN CORPUSCULAR HEMOGLOBIN 33.8 PG (27.0-31.0); MEAN CORPUSCULAR HGB CONC 34.3 g/dL (33.0-36.5); MEAN CORPUSCULAR VOLUME 98.6 FL (78-98); MEAN PLATELET VOLUME 9.7 FL (7.4-10.4); MONOCYTES # (AUTO) 0.5 X10'3 (0-0.9); MONOCYTES % (AUTO) 11.1 % (2-12); NEUTROPHILS # (AUTO) 3.3 X10'3 (1.8-7.7); NEUTROPHILS % (AUTO) 69.1 % (42-75); PHOSPHORUS 3.9 MG/DL (2.3-4.5); PLATELET COUNT 78 X10'3 (140-440); RED BLOOD COUNT 3.59 X10'6 (4.20-5.60); RED CELL DISTRIBUTION WIDTH 12.7 % (11.5-14.5); SODIUM 137 MMOL/L (135-145); TOTAL PROTEIN 7.2 G/DL (6.4-8.2); TRIGLYCERIDES 80 MG/DL (20-135); WHITE BLOOD COUNT 4.8 X10'3 (4.5-11.0); eGFR 85 ML/MIN
--- NOTE | 2021-09-13 06:32 | NUR ---
Problems reprioritized. Patient report given, questions answered & plan of care reviewed with ALLA Hoang.
--- NOTE | 2021-09-13 06:40 | NUR ---
Patient in room ALBARO 354. I have received report from sunny florence and had the opportunity to ask questions and assume patient care.
[2021-09-13] MEDS: K and/or MAG REPLACEMENT MC SCH ×2 (07:39→20:00)
[2021-09-13] MEDS ORDERED: folic acid 1mg/0.2ml inj IV SCH (08:00)
[2021-09-13] MEDS: multivitamins, therapeutics tablet PO SCH (08:05)
[2021-09-13] MEDS: docusate sod 100mg capsule PO SCH ×2 (08:05→19:21)
[2021-09-13] MEDS: thiamine 100mg/ml 2ml inj. IV SCH ×3 (08:05→20:37)
[2021-09-13] MEDS: folic acid 1mg tablet PO SCH (08:05)
[2021-09-13] MEDS ORDERED: TRAZ-251 PO (10:35)
[2021-09-13] MEDS ORDERED: LANTUS SQ (10:35)
[2021-09-13] MEDS ORDERED: ASPI-1397 PO (10:35)
[2021-09-13] MEDS ORDERED: OMEP40CA21 PO (10:35)
[2021-09-13] MEDS ORDERED: ATOR-2 PO (10:35)
[2021-09-13 11:00] VITALS: BP 122/68
--- NOTE | 2021-09-13 13:30 | NUR ---
NOTIFIED DR SALDAÑA RE: DR RAYMUNDO NOT AVAILABLE TO ROUND ON PT, WILL NEED ALTERNATE ORTHO MD TO ROUND ON PT.
[2021-09-13 15:16] LABS: HEMOGLOBIN A1C 9.1 % (4.5-6.2)
--- NOTE | 2021-09-13 18:05 | NUR ---
Patient in room ALBARO 354. I have received report from ALLA Hoang and had the opportunity to ask questions and assume patient care.
--- NOTE | 2021-09-13 18:10 | NUR ---
Problems reprioritized. Patient report given, questions answered & plan of care reviewed with DONNA GOLD.
[2021-09-13] MEDS: insulin Lispro (HumaLOG) vial - multi-dose SQ SCH (19:13)
[2021-09-13 20:00] VITALS: BP 139/79
[2021-09-13] MEDS ORDERED: enoxaparin 40mg/0.4ml syringe SQ SCH (20:00)
[2021-09-13] MEDS: insulin glargine (Lantus) pen - multi-dose SQ SCH (21:13)
[2021-09-13] MEDS: traZODone 50mg tablet PO PRN (23:08)
[2021-09-14 00:01] VITALS: BP 141/57
[2021-09-14] MEDS: LORazepam 2 mg/ml vial IV PRN ×2 (04:12→09:23)
--- NOTE | 2021-09-14 06:19 | NUR ---
Problems reprioritized. Patient report given, questions answered & plan of care reviewed with DONNA GOLD.
--- NOTE | 2021-09-14 06:38 | NUR ---
Problems reprioritized. Patient report given, questions answered & plan of care reviewed with ALLA Hoang.
[2021-09-14 06:56] LABS: BASOPHILS % (AUTO) 0.4 % (0-1); EOSINOPHILS # (AUTO) 0.1 X10'3 (0-0.9); EOSINOPHILS % (AUTO) 3.3 % (0-6); HEMATOCRIT 40.9 % (35.0-45.0); HEMOGLOBIN 13.6 g/dl (12.0-16.0); LYMPHOCYTES % (AUTO) 22.4 % (21-51); MEAN CORPUSCULAR HEMOGLOBIN 33.8 PG (27.0-31.0); MEAN CORPUSCULAR HGB CONC 33.3 g/dL (33.0-36.5); MEAN CORPUSCULAR VOLUME 101.6 FL (78-98); MEAN PLATELET VOLUME 9.5 FL (7.4-10.4); MONOCYTES # (AUTO) 0.4 X10'3 (0-0.9); NEUTROPHILS # (AUTO) 2.8 X10'3 (1.8-7.7); NEUTROPHILS % (AUTO) 63.9 % (42-75); PLATELET COUNT 60 X10'3 (140-440); RED BLOOD COUNT 4.03 X10'6 (4.20-5.60); RED CELL DISTRIBUTION WIDTH 12.8 % (11.5-14.5); WHITE BLOOD COUNT 4.3 X10'3 (4.5-11.0)
[2021-09-14 07:15] LABS: ALANINE AMINOTRANSFERASE 32 U/L (12-78); ALBUMIN 3.3 G/DL (3.4-5.0); ALBUMIN/GLOBULIN RATIO 0.7 (1.1-1.5); ALKALINE PHOSPHATASE 140 IU/L (46-116); AMYLASE 22 U/L (25-115); ANION GAP 9 (8-16); ASPARTATE AMINO TRANSFERASE 48 U/L (10-37); BILIRUBIN,TOTAL 1.6 MG/DL (0.1-1.0); BLOOD UREA NITROGEN 18 MG/DL (7-18); BUN/CREATININE RATIO 28.1 (6.6-38.0); CALCIUM 9.4 MG/DL (8.5-10.1); CHLORIDE 105 MMOL/L (99-107); CREATININE 0.64 MG/DL (0.40-0.90); GLUCOSE 107 MG/DL (70-104); LIPASE < 50 U/L (73-393); MAGNESIUM 1.8 MG/DL (1.5-2.4); PHOSPHORUS 4.5 MG/DL (2.3-4.5); SODIUM 141 MMOL/L (135-145); eGFR > 90 ML/MIN
[2021-09-14] MEDS: aspirin 81mg, enteric-coated 1 TAB TABLET.DR PO SCH (08:00)
[2021-09-14] MEDS: K and/or MAG REPLACEMENT MC SCH ×2 (08:00→20:00)
[2021-09-14 08:04] VITALS: BP 133/72
[2021-09-14] MEDS: atorvastatin 20mg tablet PO SCH (08:12)
[2021-09-14] MEDS: docusate sod 100mg capsule PO SCH ×2 (08:12→19:17)
[2021-09-14] MEDS: multivitamins, therapeutics tablet PO SCH (08:12)
[2021-09-14] MEDS: thiamine 100mg/ml 2ml inj. IV SCH ×3 (08:12→21:12)
[2021-09-14] MEDS: folic acid 1mg tablet PO SCH (08:12)
[2021-09-14] MEDS: pantoprazole 40mg Tablet.DR PO SCH (08:12)
[2021-09-14 11:00] VITALS: BP 127/70
--- NOTE | 2021-09-14 11:42 | NUR ---
DM Consult: Pt hx T2DM A1C 9.1% this admit DX L hip fx s/p fall per EMR. Pt hx active etoh currently going through withdrawals AOx1/confused per EMR; not appropriate for verbal DM ed. Written DM ed w/ RD contact information placed in pt chart. Addendum: 09/14/21 at [address] Amended: Links added.
[2021-09-14] MEDS: LORazepam 1 MG tablet PO PRN ×2 (13:42→21:12)
--- NOTE | 2021-09-14 18:03 | NUR ---
PTS ROOMMATE JENIFER AGUILAR [phone]. STATES HE IS AVAILABLE IF ANY QUESTIONS RE: PT.
--- NOTE | 2021-09-14 18:05 | NUR ---
Patient in room ALBARO 354. I have received report from ALLA Hoang and had the opportunity to ask questions and assume patient care.
--- NOTE | 2021-09-14 18:19 | NUR ---
Problems reprioritized. Patient report given, questions answered & plan of care reviewed with DONNA GOLD.
[2021-09-14] MEDS: insulin Lispro (HumaLOG) vial - multi-dose SQ SCH (19:21)
[2021-09-14 20:00] VITALS: BP 137/73
[2021-09-14] MEDS: insulin glargine (Lantus) pen - multi-dose SQ SCH (21:19)
[2021-09-14] MEDS: HYDROcodone/acetaminophen 10/325mg tab PO PRN (22:57)
[2021-09-14] MEDS: traZODone 50mg tablet PO PRN (22:57)
[2021-09-15 00:05] VITALS: BP 133/72
[2021-09-15] MEDS ORDERED: LORazepam 2 mg/ml vial IV PRN (00:15)
--- NOTE | 2021-09-15 06:27 | NUR ---
Problems reprioritized. Patient report given, questions answered & plan of care reviewed with ALLA Santacruz and ENOCH Suarez.
[2021-09-15 06:47] LABS: BASOPHILS % (AUTO) 0.5 % (0-1); EOSINOPHILS # (AUTO) 0.2 X10'3 (0-0.9); EOSINOPHILS % (AUTO) 4.8 % (0-6); HEMATOCRIT 36.3 % (35.0-45.0); LYMPHOCYTES # (AUTO) 0.8 X10'3 (1.1-4.8); LYMPHOCYTES % (AUTO) 22.7 % (21-51); MEAN CORPUSCULAR HEMOGLOBIN 32.6 PG (27.0-31.0); MEAN CORPUSCULAR HGB CONC 33.1 g/dL (33.0-36.5); MEAN CORPUSCULAR VOLUME 98.6 FL (78-98); MONOCYTES # (AUTO) 0.4 X10'3 (0-0.9); MONOCYTES % (AUTO) 11.1 % (2-12); NEUTROPHILS # (AUTO) 2.3 X10'3 (1.8-7.7); NEUTROPHILS % (AUTO) 60.9 % (42-75); PLATELET COUNT 71 X10'3 (140-440); RED BLOOD COUNT 3.69 X10'6 (4.20-5.60); RED CELL DISTRIBUTION WIDTH 12.7 % (11.5-14.5); WHITE BLOOD COUNT 3.7 X10'3 (4.5-11.0)
[2021-09-15 07:00] VITALS: BP 107/58
[2021-09-15 07:38] LABS: ALANINE AMINOTRANSFERASE 24 U/L (12-78); ALBUMIN 2.8 G/DL (3.4-5.0); ALBUMIN/GLOBULIN RATIO 0.7 (1.1-1.5); ALKALINE PHOSPHATASE 120 IU/L (46-116); AMYLASE 19 U/L (25-115); ANION GAP 10 (8-16); ASPARTATE AMINO TRANSFERASE 35 U/L (10-37); BILIRUBIN,TOTAL 1.7 MG/DL (0.1-1.0); BLOOD UREA NITROGEN 17 MG/DL (7-18); BUN/CREATININE RATIO 29.8 (6.6-38.0); CHLORIDE 105 MMOL/L (99-107); CREATININE 0.57 MG/DL (0.40-0.90); GLUCOSE 80 MG/DL (70-104); LIPASE < 50 U/L (73-393); MAGNESIUM 1.8 MG/DL (1.5-2.4); PHOSPHORUS 4.4 MG/DL (2.3-4.5); POTASSIUM 3.7 MMOL/L (3.5-5.1); SODIUM 140 MMOL/L (135-145); TOTAL CARBON DIOXIDE 25.5 MMOL/L (24-32); eGFR > 90 ML/MIN
--- NOTE | 2021-09-15 07:42 | NUR ---
Patient in room ALBARO 354. I have received report from Rosalind GOLD and had the opportunity to ask questions and assume patient care.
[2021-09-15] MEDS: K and/or MAG REPLACEMENT MC SCH ×2 (08:00→20:00)
[2021-09-15] MEDS: thiamine 100mg/ml 2ml inj. IV SCH (08:14)
[2021-09-15] MEDS: LORazepam 1 MG tablet PO PRN ×3 (08:14→20:40)
[2021-09-15] MEDS: atorvastatin 20mg tablet PO SCH (08:15)
[2021-09-15] MEDS: aspirin 81mg, enteric-coated 1 TAB TABLET.DR PO SCH (08:15)
[2021-09-15] MEDS: folic acid 1mg tablet PO SCH (08:15)
[2021-09-15] MEDS: multivitamins, therapeutics tablet PO SCH (08:15)
[2021-09-15] MEDS: docusate sod 100mg capsule PO SCH ×2 (08:15→20:41)
[2021-09-15] MEDS: pantoprazole 40mg Tablet.DR PO SCH (08:15)
[2021-09-15] MEDS: HYDROcodone/acetaminophen 10/325mg tab PO PRN (09:49)
[2021-09-15 11:00] VITALS: BP 124/60
[2021-09-15] MEDS: thiamine 100mg tablet PO SCH ×2 (13:04→20:40)
[2021-09-15] MEDS: insulin Lispro (HumaLOG) vial - multi-dose SQ SCH ×2 (14:34→19:18)
[2021-09-15 18:00] VITALS: BP 118/62
--- NOTE | 2021-09-15 18:13 | NUR ---
Problems reprioritized. Patient report given, questions answered & plan of care reviewed with Funmi GOLD.
--- NOTE | 2021-09-15 18:13 | NUR ---
Patient in room ALBARO 354. I have received report from Neeta GOLD and had the opportunity to ask questions and assume patient care.
--- NOTE | 2021-09-15 18:18 | NUR ---
Problems reprioritized. Patient report given, questions answered & plan of care reviewed with ALLA Choudhary.
[2021-09-15] MEDS: insulin glargine (Lantus) pen - multi-dose SQ SCH (20:44)
[2021-09-15] MEDS: traZODone 50mg tablet PO PRN (21:40)
[2021-09-16] VITALS: BP 133/72
[2021-09-16] MEDS: LORazepam 1 MG tablet PO PRN ×6 (00:51→19:32)
--- NOTE | 2021-09-16 06:13 | NUR ---
Problems reprioritized. Patient report given, questions answered & plan of care reviewed with Kat GOLD.
--- NOTE | 2021-09-16 06:28 | NUR ---
Patient in room ALBARO 354. I have received report from ALLA Choudhary and had the opportunity to ask questions and assume patient care.
[2021-09-16 06:58] LABS: BASOPHILS % (AUTO) 0.3 % (0-1); EOSINOPHILS # (AUTO) 0.1 X10'3 (0-0.9); EOSINOPHILS % (AUTO) 2.1 % (0-6); HEMOGLOBIN 11.9 g/dl (12.0-16.0); LYMPHOCYTES # (AUTO) 0.6 X10'3 (1.1-4.8); LYMPHOCYTES % (AUTO) 17.6 % (21-51); MEAN CORPUSCULAR HEMOGLOBIN 33.6 PG (27.0-31.0); MEAN CORPUSCULAR HGB CONC 34.2 g/dL (33.0-36.5); MEAN CORPUSCULAR VOLUME 98.3 FL (78-98); MEAN PLATELET VOLUME 9.7 FL (7.4-10.4); MONOCYTES # (AUTO) 0.4 X10'3 (0-0.9); MONOCYTES % (AUTO) 14.2 % (2-12); NEUTROPHILS # (AUTO) 2.1 X10'3 (1.8-7.7); NEUTROPHILS % (AUTO) 65.8 % (42-75); PLATELET COUNT 75 X10'3 (140-440); RED BLOOD COUNT 3.56 X10'6 (4.20-5.60); RED CELL DISTRIBUTION WIDTH 12.2 % (11.5-14.5); WHITE BLOOD COUNT 3.2 X10'3 (4.5-11.0)
[2021-09-16 07:00] VITALS: BP 136/67
[2021-09-16 07:11] LABS: ALANINE AMINOTRANSFERASE 24 U/L (12-78); ALBUMIN 2.9 G/DL (3.4-5.0); ALBUMIN/GLOBULIN RATIO 0.7 (1.1-1.5); ALKALINE PHOSPHATASE 131 IU/L (46-116); AMYLASE 19 U/L (25-115); ANION GAP 9 (8-16); ASPARTATE AMINO TRANSFERASE 41 U/L (10-37); BILIRUBIN,TOTAL 1.3 MG/DL (0.1-1.0); BLOOD UREA NITROGEN 14 MG/DL (7-18); BUN/CREATININE RATIO 20.3 (6.6-38.0); CALCIUM 8.8 MG/DL (8.5-10.1); CHLORIDE 103 MMOL/L (99-107); CREATININE 0.69 MG/DL (0.40-0.90); GLUCOSE 80 MG/DL (70-104); LIPASE < 50 U/L (73-393); MAGNESIUM 1.6 MG/DL (1.5-2.4); PHOSPHORUS 3.9 MG/DL (2.3-4.5); POTASSIUM 3.7 MMOL/L (3.5-5.1); SODIUM 138 MMOL/L (135-145); TOTAL CARBON DIOXIDE 25.9 MMOL/L (24-32); TOTAL PROTEIN 7.1 G/DL (6.4-8.2); eGFR 83 ML/MIN
[2021-09-16] MEDS: aspirin 81mg, enteric-coated 1 TAB TABLET.DR PO SCH (07:42)
[2021-09-16] MEDS: atorvastatin 20mg tablet PO SCH (07:43)
[2021-09-16] MEDS: multivitamins, therapeutics tablet PO SCH (07:43)
[2021-09-16] MEDS: pantoprazole 40mg Tablet.DR PO SCH (07:43)
[2021-09-16] MEDS: thiamine 100mg tablet PO SCH ×3 (07:43→20:48)
[2021-09-16] MEDS: folic acid 1mg tablet PO SCH (07:43)
[2021-09-16] MEDS: HYDROcodone/acetaminophen 10/325mg tab PO PRN ×2 (07:43→19:32)
[2021-09-16] MEDS: docusate sod 100mg capsule PO SCH ×2 (07:44→19:31)
[2021-09-16] MEDS: K and/or MAG REPLACEMENT MC SCH ×2 (08:00→20:00)
[2021-09-16 11:00] VITALS: BP 107/61
[2021-09-16 18:00] VITALS: BP 150/62
--- NOTE | 2021-09-16 18:37 | NUR ---
Problems reprioritized. Patient report given, questions answered & plan of care reviewed with ALLA Littlejohn.
--- NOTE | 2021-09-16 19:13 | NUR ---
Patient in room ALBARO 354. I have received report from MITESH GOLD and had the opportunity to ask questions and assume patient care.
[2021-09-16] MEDS: insulin glargine (Lantus) pen - multi-dose SQ SCH (20:50)
[2021-09-17] VITALS: BP 110/54
[2021-09-17] MEDS: HYDROcodone/acetaminophen 10/325mg tab PO PRN ×2 (01:20→19:32)
--- NOTE | 2021-09-17 01:29 | NUR ---
norco given for pain, will continue to monitor
--- NOTE | 2021-09-17 06:29 | NUR ---
Problems reprioritized. Patient report given, questions answered & plan of care reviewed with wayne GOLD.
--- NOTE | 2021-09-17 06:39 | NUR ---
Patient in room ALBARO 354A. I have received report from ALLA CHEEMA and had the opportunity to ask questions and assume patient care.
[2021-09-17 07:00] VITALS: BP 132/61
[2021-09-17] MEDS: K and/or MAG REPLACEMENT MC SCH ×2 (08:00→19:16)
[2021-09-17] MEDS: LORazepam 1 MG tablet PO PRN ×3 (08:14→19:33)
[2021-09-17] MEDS: multivitamins, therapeutics tablet PO SCH (08:15)
[2021-09-17] MEDS: pantoprazole 40mg Tablet.DR PO SCH (08:16)
[2021-09-17] MEDS: atorvastatin 20mg tablet PO SCH (08:17)
[2021-09-17] MEDS: thiamine 100mg tablet PO SCH (08:17)
[2021-09-17] MEDS: aspirin 81mg, enteric-coated 1 TAB TABLET.DR PO SCH (08:18)
[2021-09-17] MEDS: docusate sod 100mg capsule PO SCH ×2 (08:18→19:33)
[2021-09-17] MEDS: folic acid 1mg tablet PO SCH (08:18)
[2021-09-17 08:32] LABS: ALANINE AMINOTRANSFERASE 37 U/L (12-78); ALBUMIN 3.3 G/DL (3.4-5.0); ALBUMIN/GLOBULIN RATIO 0.7 (1.1-1.5); ALKALINE PHOSPHATASE 155 IU/L (46-116); AMYLASE 19 U/L (25-115); ANION GAP 12 (8-16); ASPARTATE AMINO TRANSFERASE 69 U/L (10-37); BILIRUBIN,TOTAL 1.2 MG/DL (0.1-1.0); BLOOD UREA NITROGEN 15 MG/DL (7-18); CALCIUM 9.4 MG/DL (8.5-10.1); CHLORIDE 97 MMOL/L (99-107); CREATININE 0.75 MG/DL (0.40-0.90); GLUCOSE 70 MG/DL (70-104); LIPASE < 50 U/L (73-393); PHOSPHORUS 3.7 MG/DL (2.3-4.5); POTASSIUM 3.2 MMOL/L (3.5-5.1); SODIUM 136 MMOL/L (135-145); TOTAL CARBON DIOXIDE 27.3 MMOL/L (24-32); TOTAL PROTEIN 8.3 G/DL (6.4-8.2); eGFR 76 ML/MIN
[2021-09-17 08:50] LABS: BASOPHILS % (AUTO) 0.3 % (0-1); EOSINOPHILS # (AUTO) 0.1 X10'3 (0-0.9); EOSINOPHILS % (AUTO) 2.1 % (0-6); HEMATOCRIT 39.5 % (35.0-45.0); HEMOGLOBIN 13.3 g/dl (12.0-16.0); LYMPHOCYTES # (AUTO) 0.5 X10'3 (1.1-4.8); LYMPHOCYTES % (AUTO) 20.5 % (21-51); MEAN CORPUSCULAR HEMOGLOBIN 33.2 PG (27.0-31.0); MEAN CORPUSCULAR HGB CONC 33.7 g/dL (33.0-36.5); MEAN CORPUSCULAR VOLUME 98.6 FL (78-98); MEAN PLATELET VOLUME 9.8 FL (7.4-10.4); MONOCYTES # (AUTO) 0.3 X10'3 (0-0.9); MONOCYTES % (AUTO) 14.3 % (2-12); NEUTROPHILS # (AUTO) 1.5 X10'3 (1.8-7.7); NEUTROPHILS % (AUTO) 62.8 % (42-75); PLATELET COUNT 86 X10'3 (140-440); RED BLOOD COUNT 4.01 X10'6 (4.20-5.60); RED CELL DISTRIBUTION WIDTH 12.7 % (11.5-14.5); WHITE BLOOD COUNT 2.4 X10'3 (4.5-11.0)
[2021-09-17 09:32] LABS: PLATELET ESTIMATE DECREASED; TOTAL CELLS COUNTED 100
--- NOTE | 2021-09-17 10:18 | NUR ---
Initial: Pt admitted w/ L proximal femur fracture s/p fall, though no surgical intervention recommended per EMR. Currently on Carb controlled diet w/ low PO intake, mostly 25-50% of meals partially meeting needs, though pt is noted to be going through withdrawals and has nausea. Pt declined any nutrition interventions at time of assessment. [facility] 09/16 receiving routine colcae. Will continue to monitor. Recs: 1. Continue Carb controlled diet as tolerated 2. Pt declined any intervention; will monitor for change in preference 3. Routine Thiamine, Folic acid, MVI for EtOH 4. Bowel care per rx 5. Scaled wts Addendum: 09/17/21 at [address] Amended: Links added.
[2021-09-17 11:00] VITALS: BP 128/57
[2021-09-17] MEDS: magnesium hydroxide 30ml (MOM) UD suspension PO SCH ×2 (13:45→19:33)
[2021-09-17] MEDS ORDERED: potassium Cl 20 mEq SR tablet PO STA (15:55)
--- NOTE | 2021-09-17 18:30 | NUR ---
Problems reprioritized. Patient report given, questions answered & plan of care reviewed with ALLA MARTE.
[2021-09-17 20:00] VITALS: BP 141/43
[2021-09-17] MEDS: insulin glargine (Lantus) pen - multi-dose SQ SCH (21:00)
[2021-09-18] VITALS: BP 134/68
[2021-09-18] MEDS: LORazepam 1 MG tablet PO PRN (02:10)
[2021-09-18] MEDS: HYDROcodone/acetaminophen 10/325mg tab PO PRN ×2 (04:01→10:38)
--- NOTE | 2021-09-18 06:17 | NUR ---
Problems reprioritized. Patient report given, questions answered & plan of care reviewed with Sofia GOLD.
--- NOTE | 2021-09-18 07:19 | NUR ---
Patient in room ALBARO 354A. I have received report from ALLA MARTE and had the opportunity to ask questions and assume patient care.
[2021-09-18 07:31] VITALS: BP 107/49
[2021-09-18] MEDS: docusate sod 100mg capsule PO SCH (08:00)
[2021-09-18] MEDS: magnesium hydroxide 30ml (MOM) UD suspension PO SCH (08:00)
[2021-09-18] MEDS: K and/or MAG REPLACEMENT MC SCH (08:00)
[2021-09-18 08:58] LABS: ALBUMIN 3.3 G/DL (3.4-5.0); ANION GAP 9 (8-16); BLOOD UREA NITROGEN 19 MG/DL (7-18); BUN/CREATININE RATIO 23.2 (6.6-38.0); CALCIUM 9.1 MG/DL (8.5-10.1); CHLORIDE 99 MMOL/L (99-107); CREATININE 0.82 MG/DL (0.40-0.90); GLUCOSE 219 MG/DL (70-104); POTASSIUM 4.6 MMOL/L (3.5-5.1); SODIUM 132 MMOL/L (135-145); TOTAL CARBON DIOXIDE 23.7 MMOL/L (24-32); eGFR 68 ML/MIN
[2021-09-18 10:06] LABS: BASOPHILS % (AUTO) 0.3 % (0-1); EOSINOPHILS % (AUTO) 0.3 % (0-6); HEMATOCRIT 36.1 % (35.0-45.0); HEMOGLOBIN 12.3 g/dl (12.0-16.0); LYMPHOCYTES # (AUTO) 0.5 X10'3 (1.1-4.8); LYMPHOCYTES % (AUTO) 13.6 % (21-51); MEAN CORPUSCULAR HEMOGLOBIN 33.8 PG (27.0-31.0); MEAN CORPUSCULAR HGB CONC 34.1 g/dL (33.0-36.5); MEAN CORPUSCULAR VOLUME 99.1 FL (78-98); MEAN PLATELET VOLUME 9.2 FL (7.4-10.4); MONOCYTES # (AUTO) 0.6 X10'3 (0-0.9); NEUTROPHILS # (AUTO) 2.4 X10'3 (1.8-7.7); NEUTROPHILS % (AUTO) 67.8 % (42-75); PLATELET COUNT 80 X10'3 (140-440); RED BLOOD COUNT 3.64 X10'6 (4.20-5.60); RED CELL DISTRIBUTION WIDTH 12.7 % (11.5-14.5); WHITE BLOOD COUNT 3.6 X10'3 (4.5-11.0)
[2021-09-18] MEDS: pantoprazole 40mg Tablet.DR PO SCH (10:38)
[2021-09-18] MEDS: folic acid 1mg tablet PO SCH (10:38)
[2021-09-18] MEDS: aspirin 81mg, enteric-coated 1 TAB TABLET.DR PO SCH (10:39)
[2021-09-18] MEDS: multivitamins, therapeutics tablet PO SCH (10:39)
[2021-09-18] MEDS: thiamine 100mg tablet PO SCH (10:39)
[2021-09-18] MEDS: atorvastatin 20mg tablet PO SCH (11:18)
[2021-09-18 12:41] VITALS: BP 128/81
--- NOTE | 2021-09-18 14:08 | NUR ---
PRESSURE ULCER EDUCATION: DEFINITION: A pressure ulcer is an area of skin that breaks down when you stay in one position too long. The constant pressure against the skin reduces the blood flow to that area and the affected tissue dies. CAUSES: "Being bedridden or in a wheelchair "Fragile skin "Having a chronic condition, such as diabetes or vascular disease "Inability to move certain parts of your body without assistance "Older age "Incontinence of urine or stool SYMPTOMS: "A reddened area that DOES NOT turn white when pressed on - this can be the beginning of a pressure ulcer "A blister, deep sore or a crater - these can be advanced pressure ulcers FIRST AID: "Relieve the pressure on this area "Keep the area clean and dry "Call your primary doctor if you see any of the above symptoms "DO NOT massage the area "DO NOT use a donut shaped or ring shaped pillow- these actually interfere with the blood flow and cause complications PREVENTION: "Check for pressure ulcers everyday "Change position at least every two hours to relieve pressure "Use items that help relieve pressure- pillows, sheepskin, foam padding, and powders. "Keep skin clean and dry "Eat healthy well balanced meals "Exercise daily IF YOU SEE ANY OF THESE SYMPTOMS WHILE IN THE HOSPITAL - TELL YOUR NURSE IMMEDIATELY. IF YOU SEE ANY OF THESE SYMPTOMS WHILE AT HOME OR HAVE ANY QUESTIONS OR CONCERNS ABOUT PRESSURE ULCERS - CALL YOUR PRIMARY DOCTOR IMMEDIATELY. Addendum: 09/18/21 at 1408 by Rachael Isaacs RN Amended: Links added.
--- NOTE | 2021-09-18 14:44 | NUR ---
PATIENT STABLE AND APPROPRIATE FOR TRANSFER TO [facility], IV TAKEN OUT, REPORT CALLED IN TO ALLA SIERRA FROM [facility], ALL BELONGINGS SENT WITH PATIENT, PATIENT TAKEN TO [facility] BY [facility]FF
[2021-09-18 15:18] LABS: TOTAL CELLS COUNTED 100
[2021-09-18 15:19] LABS: NEUTROPHILS % (MANUAL) 75 % (42-75); PLATELET ESTIMATE DECREASED
== END 2021-09-18 14:37 | DRG 560 ==
LOC: ER 16:31 → SUR 3N 21:21
PROVIDERS: ADMIT Internal Medicine; ATTEND Family Medicine
DX: M97.02XA Periprosthetic fracture around internal prosthetic left hip joint, initial encounter (principal); F10.239 Alcohol dependence with withdrawal, unspecified; E11.9 Type 2 diabetes mellitus without complications; W01.0XXA Fall on same level from slipping, tripping and stumbling without subsequent striking against object, initial encounter; Z96.643 Presence of artificial hip joint, bilateral; D69.59 Other secondary thrombocytopenia; F32.A Depression, unspecified; Y93.01 Activity, walking, marching and hiking; R29.6 Repeated falls; I10 Essential (primary) hypertension; Z72.0 Tobacco use; Z79.82 Long term (current) use of aspirin; Z79.899 Other long term (current) drug therapy; Z82.3 Family history of stroke; Z82.49 Family history of ischemic heart disease and other diseases of the circulatory system; Z82.5 Family history of asthma and other chronic lower respiratory diseases; Z83.3 Family history of diabetes mellitus; Z98.42 Cataract extraction status, left eye; Z98.41 Cataract extraction status, right eye; Y92.89 Other specified places as the place of occurrence of the external cause; Y99.8 Other external cause status; Z88.0 Allergy status to penicillin; Z91.011 Allergy to milk products; Z87.440 Personal history of urinary (tract) infections
CPT/HCPCS: 36415; 71045; 73502; 80048; 80053; 80061; 81001; 82150; 82948; 83036; 83690; 83735; 84100; 85007; 85025; 85610; 85730; 86885; 86900; 86901; 87081; 93005; 93306; 97110; 97116; 97162; 97530; 99285; G0378; J1650; J1815; J2060; J2270; J2405; J3411